=== PATIENT | male | born 1975 | race Caucasian/White ===

== ENCOUNTER → 2017-06-30 | Outpatient (CLI) | payer BC, OTHER | LOC: M WUC 18:08 | DX: S60.211A Contusion of right wrist, initial encounter (principal); X58.XXXA Exposure to other specified factors, initial encounter; Y92.9 Unspecified place or not applicable | CPT/HCPCS: 73110 ==

== ENCOUNTER 2018-02-14 12:15 | Emergency (ER) | payer BC, OTHER ==
[~2018-02-14] VITALS: Ht 170.2 cm; Wt 92.2 kg
[2018-02-14] MEDS ORDERED: NAPR-50 PO (14:08)
[2018-02-14 14:16] VITALS: BP 115/73
--- NOTE | 2018-02-14 14:17 | REP ---
SCROTAL SONOGRAPHY: HISTORY: Right testalgia. FINDINGS: High-resolution bilateral scrotal sonography shows homogeneous testicular parenchyma on both sides. No intratesticular mass lesion is seen. Testicular Doppler flow is normal bilaterally. Right sided Doppler resistive index is 0.55 and left is 0.45. The right testis measures 5.9 x 2.3 x 2.8 cm. Left testicular dimensions are 5.4 x 2.1 x 3.4 cm. The epididymides are unremarkable. Very small bilateral hydroceles are noted incidentally. IMPRESSION: No significant abnormality. Normal Doppler flow. No testicular mass lesion seen on either side. Electronically Signed by Saúl Goodwin MD 02/14/2018 05:46 P
== END 2018-02-14 14:48 | disposition home or self-care (01) ==
LOC: M ED 12:15
DX: N50.811 Right testicular pain (principal); Z88.0 Allergy status to penicillin; F17.210 Nicotine dependence, cigarettes, uncomplicated

== ENCOUNTER → 2018-02-14 | Outpatient (REF) | payer OTHER ==
[~2018-02-14] MED LIST: NAPR-50 PO
== END ==
LOC: M SFHCPLAZ 12:49
PROVIDERS: ATTEND Physician Assistant
DX: N50.811 Right testicular pain (principal)

== ENCOUNTER → 2018-03-22 | Outpatient (CLI) | payer BC, OTHER ==
--- NOTE | 2018-03-22 15:25 | REP ---
SCROTAL ULTRASOUND: Real-time sonographic evaluation of scrotum and contents performed. Testicles appear normal in size and echotexture, right testicle measuring 5.2 x 2.4 x 3.1 cm and left testicle 5.1 x 2.3 x 2.9 cm. There is no testicular mass or torsion, resistive index right testicle 0.48 and left testicle 0.51. Two small cysts are seen in the left epididymis measuring 2-3 mm in diameter. No other scrotal abnormality is seen. There is no evidence of inguinal hernia. IMPRESSION: Two tiny cysts in the head of the left epididymis. Otherwise negative scrotal ultrasound. No evidence of inguinal hernia. Electronically Signed by Emre Siegel MD 03/23/2018 03:52 P
== END ==
LOC: M RAD 14:01
PROVIDERS: ATTEND Specialist
DX: N50.3 Cyst of epididymis (principal)

== ENCOUNTER 2018-12-21 03:48 | Emergency (ER) | payer BC, OTHER ==
[~2018-12-21] VITALS: Ht 172.7 cm; Wt 90.9 kg
[2018-12-21 03:48] VITALS: BP 144/81
[~2018-12-21 03:48] MED LIST changes: -NAPR-50 PO; +NAPR-837 PO
[2018-12-21] MEDS ORDERED: LIDOCAINE W/EPINEPHRINE 1% 20ML VIAL As Ordered ONE (04:55)
[2018-12-21] MEDS ORDERED: LIDOCAINE W/EPINEPHRINE 1% 20ML VIAL SC ONE (05:00)
== END 2018-12-21 05:54 | disposition home or self-care (01) ==
LOC: M ED 03:48
DX: L02.31 Cutaneous abscess of buttock (principal); F17.210 Nicotine dependence, cigarettes, uncomplicated; Z88.0 Allergy status to penicillin

== ENCOUNTER 2018-12-23 07:49 | Emergency (ER) | payer BC, OTHER ==
[~2018-12-23] VITALS: Ht 172.7 cm; Wt 90.9 kg
[2018-12-23] MEDS ORDERED: SULF1TAB93 (07:55)
[2018-12-23 08:58] VITALS: BP 121/78
[2018-12-23] MEDS ORDERED: LEVA1TAB2 PO (14:11)
== END 2018-12-23 09:01 | disposition home or self-care (01) ==
LOC: M ED 07:49
DX: L02.31 Cutaneous abscess of buttock (principal); F17.210 Nicotine dependence, cigarettes, uncomplicated; Z88.0 Allergy status to penicillin

== ENCOUNTER 2019-04-18 10:28 | Emergency (ER) | payer BC, OTHER ==
[~2019-04-18] VITALS: Ht 172.7 cm; Wt 97.3 kg
[~2019-04-18 10:28] MED LIST changes: +LEVA1TAB2 PO; +SULF1TAB93
[2019-04-18] MEDS ORDERED: NS 1,000 ML IV ONE (10:45)
[2019-04-18 10:56] LABS: BASO # 0.1 10^3/uL (0.0-0.2); BASO % 0.8 % (0.0-1.0); EOS # 0.1 10^3/uL (0.0-0.5); HEMATOCRIT 49.7 % (42.0-52.0); HEMOGLOBIN 16.1 g/dl (13.5-17.5); LYMPH % 29.8 % (24.0-44.0); MEAN CORPUSCULAR HEMOGLOBIN 27.9 pg (27.0-33.0); MEAN CORPUSCULAR HGB CONC 32.4 g/dl (32.0-36.5); MEAN CORPUSCULAR VOLUME 86.1 fl (80.0-96.0); MONO % 10.2 % (0.0-5.0); NEUTROPHILS # 5.9 10^3/uL (1.5-8.5); NEUTROPHILS % 57.5 % (36.0-66.0); PLATELET COUNT, AUTOMATED 399 10^3/uL (150-450); RED BLOOD COUNT 5.77 10^6/uL (4.30-6.10); WHITE BLOOD COUNT 10.2 10^3/uL (4.0-10.0)
[2019-04-18] MEDS ORDERED: LIDOCAINE W/EPINEPHRINE 1% 20ML VIAL SC ONE (11:00)
--- NOTE | 2019-04-18 11:21 | REP ---
There is questionably a small left frontal scalp contusion. This should be confirmed clinically. There is no subdural or epidural hematoma. There is no intraparenchymal or subarachnoid hemorrhage. There is no edema, mass effect or midline shift. The ventricles are normal size. The visualized paranasal sinuses and mastoid air cells are clear. Impression: Essentially negative CT study of the brain. Questionable small left frontal scalp contusion. This should be confirmed clinically. Electronically Signed by Emre Ayala MD 04/18/2019 11:12 A
[2019-04-18 11:30] LABS: INR 0.98; PROTHROMBIN TIME 12.7 SECONDS (11.8-14.0)
--- NOTE | 2019-04-18 11:33 | REP ---
Portable chest, 11:08 a.m., single AP view the patient upright: Comparison is the PA and lateral chest dated 02/14/2012. There is no pneumothorax, hemothorax or pulmonary contusion. No rib fractures are identified. The lung stahl are clear. The cardiac size is normal. The jane, mediastinum, skeletal structures are unremarkable. There is a tiny round metallic artifact superimposed over the left costophrenic angle. This is also present on the prior on the prior study where was superimposed over the left lateral chest wall soft tissues. This is likely a foreign body, possibly a BB. Impression: Essentially negative portable chest. There is a small round metallic artifact on the left as described, unchanged. Electronically Signed by Emre Ayala MD 04/18/2019 11:25 A
--- NOTE | 2019-04-18 11:49 | REP ---
CT study of the cervical spine without contrast: History: Trauma Technique: Helical scanning is acquired and overlapping 2 mm high resolution axial images were generated and reviewed at bone and soft tissue window settings. Coronal and sagittal multiplanar re-formations images are generated. CT findings: There is no evidence of cervical spine element fracture. No skull base fracture is seen. Cervical vertebral body heights are preserved. Alignment is normal. Facet joints are normally aligned bilaterally at each cervical level on multiplanar re-formations images. There is no evidence of intraspinal or paraspinal hematoma. No extra vertebral abnormality is seen. There are degenerative disc changes at C3-4, C4-5, C5-6 and C6-7. There is a broad-based partially calcified right posterior disc protrusion at C3-4 which produces central canal stenosis and right-sided foraminal narrowing. Disc bulging is seen at C5-6. There is mild facet joint osteoarthropathy. Impression: Degenerative spondylosis changes with multilevel degenerative disc disease. There is a partially calcified moderate size right posterior broad-based disc protrusion at C3-4 producing central canal stenosis and right-sided neural foraminal narrowing. Otherwise negative CT study of the cervical spine without contrast. No fracture seen. Electronically Signed by Saúl Goodwin MD 04/18/2019 12:39 P
[2019-04-18 11:58] LABS: ALBUMIN 3.7 GM/DL (3.2-5.2); ALT/SGPT 21 U/L (12-78); AMYLASE 43 U/L (25-115); BILIRUBIN,DIRECT < 0.1 MG/DL (0.0-0.2); BILIRUBIN,TOTAL 0.2 MG/DL (0.2-1.0); BLOOD UREA NITROGEN 11 MG/DL (7-18); CALCIUM LEVEL 9.2 MG/DL (8.5-10.1); CARBON DIOXIDE LEVEL 28 MEQ/L (21-32); CHLORIDE LEVEL 106 MEQ/L (98-107); CK-MB VALUE MASS 1.8 NG/ML (<3.6); CPK CREATINE PHOSPHOKINASE 127 U/L (39-308); CREATININE FOR GFR 0.91 MG/DL (0.70-1.30); GLOMERULAR FILTRATION RATE > 60.0 (>60); GLUCOSE, FASTING 109 MG/DL (70-100); LIPASE 128 U/L (73-393); MB/CK RELATIVE INDEX 1.42 (< OR =4); POTASSIUM SERUM 5.2 MEQ/L (3.5-5.1); SODIUM LEVEL 139 MEQ/L (136-145); TOTAL PROTEIN 7.5 GM/DL (6.4-8.2); TROPONIN I < 0.02 NG/ML (< 0.10)
[2019-04-18] MEDS ORDERED: KETOROLAC 30 MG/ML VIAL (J1885) IV ONE (12:30)
[2019-04-18] MEDS ORDERED: IBUP-1022 PO (13:04)
[2019-04-18 13:10] VITALS: BP 142/86
[2019-04-18] MEDS ORDERED: ADACEL/BOOSTRIX VACCINE (DIPHTH/PERTUSS/ACELL/TETANUS)0.5ML SYR (90715) IM ONE (13:15)
== END 2019-04-18 13:10 | disposition home or self-care (01) ==
LOC: M ED 10:28
DX: S06.0X9A Concussion with loss of consciousness of unspecified duration, initial encounter (principal); S01.81XA Laceration without foreign body of other part of head, initial encounter; Y92.89 Other specified places as the place of occurrence of the external cause; Y93.89 Activity, other specified; Y99.0 Civilian activity done for income or pay; F17.200 Nicotine dependence, unspecified, uncomplicated; M47.819 Spondylosis without myelopathy or radiculopathy, site unspecified; M99.51 Intervertebral disc stenosis of neural canal of cervical region; Z79.899 Other long term (current) drug therapy; Z88.0 Allergy status to penicillin
CPT/HCPCS: 12011; 70450; 71045; 72125; 80048; 80076; 82150; 82550; 82553; 83605; 83690; 84484; 85025; 85610; 85730; 90471; 90715; 93041; 94760; 96360; 96374; 99284; J1885

== ENCOUNTER → 2019-08-28 | Outpatient (CLI) | payer BC, OTHER ==
[~2019-08-28] MED LIST changes: +IBUP-1022 PO; +KEFL500C17 PO; +MONT10TA4 PO; +OMEP40CA97 PO; +PRED20TA PO; +SUCR1TA PO
--- NOTE | 2019-08-28 10:03 | REP ---
Clinical: Cough. Technique: PA and lateral. Comparison: 04/18/2019. Findings: Mediastinum and cardiac silhouette are normal. Lung stahl are clear. Metallic BB marker in the left lateral chest wall again noted. No effusion. No pneumothorax. Skeletal structures are intact. Impression: No acute cardiopulmonary process. Electronically Signed by Pacheco Vyas MD 08/28/2019 09:55 A
== END ==
LOC: M WUC 09:13
PROVIDERS: ATTEND Physician Assistant
DX: R05 Cough (principal)

== ENCOUNTER 2019-09-03 07:00 | Emergency (ER) | payer BC, OTHER ==
[~2019-09-03 07:00] MED LIST changes: -KEFL500C17 PO; -MONT10TA4 PO; -OMEP40CA97 PO; +PANTOPRAZOLE 40MG VIAL (C9113 PER 1) ONE; -PRED20TA PO; -SUCR1TA PO
[2019-09-03] MEDS ORDERED: GI COCKTAIL 50ML BTL(HYOSCYAMINE/MAALOX/LIDOCAINE VISCOUS)(1:3:1) ONE (09:34)
[2019-09-03] MEDS ORDERED: ALBUTEROL SULFATE 2.5 MG/0.5 ML INH NEB SOLN ONE (10:21)
[2019-09-03] MEDS ORDERED: methylPREDNISolone 125MG 2ML VIAL ONE (10:21)
[2019-09-30] MEDS ORDERED: SUCR1TA PO (11:37)
[2019-09-30] MEDS ORDERED: OMEP40CA97 PO (11:37)
[2019-09-30] MEDS ORDERED: PRED20TA PO (11:37)
[2019-10-08 15:04] LABS: ALBUMIN 3.4 GM/DL (3.2-5.2); ALT/SGPT 41 U/L (12-78); BILIRUBIN,DIRECT < 0.1 MG/DL (0.0-0.2); BILIRUBIN,TOTAL 0.3 MG/DL (0.2-1.0); BLOOD UREA NITROGEN 22 MG/DL (7-18); CALCIUM LEVEL 8.9 MG/DL (8.5-10.1); CARBON DIOXIDE LEVEL 29 MEQ/L (21-32); CHLORIDE LEVEL 105 MEQ/L (98-107); CK-MB VALUE MASS 6.2 NG/ML (<3.6); CPK CREATINE PHOSPHOKINASE 334 U/L (39-308); CREATININE FOR GFR 0.98 MG/DL (0.70-1.30); GLOMERULAR FILTRATION RATE > 60.0 (>60); GLUCOSE, FASTING 85 MG/DL (70-100); LIPASE 151 U/L (73-393); MB/CK RELATIVE INDEX 1.86 (< OR =4); SODIUM LEVEL 142 MEQ/L (136-145); TROPONIN I < 0.02 NG/ML (< 0.10)
[2019-10-12 11:35] LABS: BASO # 0.1 10^3/uL (0.0-0.2); BASO % 0.5 % (0.0-1.0); EOS # 0.3 10^3/uL (0.0-0.5); EOS % 1.2 % (0.0-3.0); HEMATOCRIT 46.7 % (42.0-52.0); HEMOGLOBIN 15.3 g/dl (13.5-17.5); LYMPH # 3.2 10^3/uL (1.5-5.0); LYMPH % 14.3 % (24.0-44.0); MEAN CORPUSCULAR HEMOGLOBIN 28.3 pg (27.0-33.0); MEAN CORPUSCULAR HGB CONC 32.8 g/dl (32.0-36.5); MEAN CORPUSCULAR VOLUME 86.3 fl (80.0-96.0); MONO # 1.8 10^3/uL (0.0-0.8); MONO % 8.2 % (0.0-5.0); NEUTROPHILS # 16.3 10^3/uL (1.5-8.5); NEUTROPHILS % 72.4 % (36.0-66.0); PLATELET COUNT, AUTOMATED 396 10^3/uL (150-450); RED BLOOD COUNT 5.41 10^6/uL (4.30-6.10); WHITE BLOOD COUNT 22.5 10^3/uL (4.0-10.0)
--- NOTE | 2019-10-18 11:49 | ER ---
DATE: 09/03/2019 REASON FOR CONSULTATION: Epigastric pain. HISTORY OF PRESENT ILLNESS: The patient is a pleasant, 44-year-old man who presented to the emergency department at approximately 6:30 in the morning on 09/03/2019 complaining of worsened epigastric pain. He reports that he has had a long history of intermittent high epigastric discomfort which he relates to reflux and heartburn. At times in the past, he has used sbeg-kon-cipktjk antacid medications as needed. He reports that he has had increased symptoms over the last week to ten days. He reports that on this past Monday a week ago, which would be 08/25/2019, he developed a mild cough. Over the course of the ensuing several days, he had increased coughing. He noticed with this an increase in the epigastric discomfort. He apparently has been able to eat without difficulty. He has been voiding without difficulty. He denies any nausea or vomiting and has not noticed any fever or chills. This past 08/27/2019, or maybe 08/28/2019, he was seen at an urgent care center in [facility]. He was provided with some antacid medication, which was Prilosec I believe. He was also given an inhaler to use as his cough was felt to be related somehow to bronchospasms. He did not find any significant relief with this. He continued to have a cough as well as epigastric discomfort. When the proton pump inhibitor did not lead to any significant improvement, he called the urgent care center and was provided with a four day supply of prednisone, as well as an antitussive medication. He continued to have problems with the cough. The epigastric discomfort persisted. He reports that he was awakened in the frame operator of 09/03/2019 at about 3:00 in the morning with more severe pain that did not remit as it had previously. He therefore presented to the emergency department in the frame operator for evaluation. He was seen by the physician hospital medical assistant. He underwent evaluation with laboratory studies, as well as a CT scan of the chest and then a CT scan of the abdomen and pelvis. His CT scan of the abdomen and pelvis was interpreted by the radiologist as showing a small amount of fluid density adjacent to the distal esophagus. There were no other apparent abnormalities within the abdomen. I was contacted by the physician hospital medical assistant (PA) in the emergency department and asked to evaluate the patient. MEDICATIONS: The patient is not normally on any routine scheduled medications. He uses some ibuprofen prn for aches and pains. He takes nfoo-agz-hpzaftl antacid medications in larger than recommended doses. He specifically related to one wlpb-txw-[id number] medication which may be Pepcid or Zantac that he could take, but he tends to take three pills at a time instead of one to try and get faster relief. ALLERGIES: I do not believe he related any history of significant allergies. SURGICAL HISTORY: He has had only wisdom teeth removed and has had no abdominal surgery. MEDICAL HISTORY: He does have this longstanding history of what sounds like reflux with heartburn. He has some musculoskeletal complaints which he relates to hard physical labor. 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 REVIEW OF SYSTEMS: As noted in the history of the present illness, he has been having regular bowel movements. He denies any nausea, vomiting, diarrhea, or constipation. He has been able to eat. He has been voiding well. There have been no fevers or chills. He has had a persistent cough with significant coughing episodes. He denies any history of chronic severe headaches or seizures. He has no cardiac symptoms and has no known respiratory problems. He is a smoker, but reports that since trying to light a cigarette four days ago with immediate onset of coughing he has not smoked in several days. PHYSICAL EXAMINATION: Reveals a pleasant man in only mild apparent discomfort. He is able to sit up from a supine position without apparent difficulty or significant pain. He is alert and oriented. Skin is warm and dry. Sclerae are anicteric. The mucous membranes are moist. The neck is supple. There are no cervical bruits. Heart exam shows a regular rhythm at about 70. The lungs are clear to auscultation bilaterally. The abdomen is perhaps minimally protuberant. He has active bowel sounds throughout the abdomen. There is no evident hernia. The abdomen is soft to palpation throughout. There is some mild direct tenderness in the mid-epigastrium. There is no significant right upper quadrant or left upper quadrant tenderness. No masses appreciated. He does not have any significant guarding. Extremities are without any edema and he has palpable posterior tibial pulses and radial pulses bilaterally. LABORATORY STUDIES: Included a CBC showing a white count of 22,000. His hemoglobin and hematocrit were unremarkable. He had chemistries that were without significant abnormality including his BUN and creatinine. Liver function tests were normal, as was a lipase. His CT of the chest was read by radiology as showing no acute intrathoracic pathology. He had the CT scan of the abdomen and pelvis. I reviewed the images with the radiologist on the radiology department monitor because of the ongoing computer problems at [facility]. The images showed perhaps some slight thickening in the distal esophagus. There may have been a small amount of edema. There was certainly no free fluid within the abdomen. There was no sign of free air or perforation anywhere. Gallbladder appeared normal as did the liver. There was no sign of obstruction. There was some stool in the colon but no increase in the diameter of the colon. The patient had a respiratory panel that showed no respiratory pathogens including no COVID-19. He did have a Streptococcus screen that was positive for Streptococcus. IMPRESSION: I think that the patient most likely has two issues ongoing at this point. I think his epigastric pain is likely related to gastroesophageal reflux with esophagitis. He reports that he has had this for quite some time but it is intermittent usually and, on this occasion, the discomfort did not remit. I suspect that the worsened symptoms may be partly attributable to the trial of steroids for his cough. Possibly, his coughing is also contributing to the discomfort. He has tried some Prilosec without significant improvement, but this was in concert with the prednisone. He reports that he has also been drinking his usual coffee and such. He does have a significant cough recently over the last week or so and now has a positive Streptococcus screen. I think it is quite likely that he has some ongoing Streptococcus infection. His chest CT did not show any evidence of infiltrate. His elevated white blood cell count may be a combination of infection with his recent steroids, which would make his white count elevated as well. The finding of the small amount of fluid density around the distal esophagus I think may be a sign of some esophagitis, but I do not believe after reviewing the images with the radiologist that this represents an urgent problem. RECOMMENDATIONS: I spoke with Tiara, the physician hospital medical assistant (PA) who is caring for this patient. I think it would be reasonable for him to receive antibiotic therapy for his possible Streptococcus infection. I also think some ongoing treatment with a proton pump inhibitor would be appropriate. Use of Carafate for a short course may be appropriate as well. He certainly does not need any urgent surgical intervention at this time. He also does not have a primary care provider at this point and it would be beneficial, I think, if we could connect him to a primary care physician who could monitor his problems going forward. ROSY
--- NOTE | 2019-10-25 15:45 | REP ---
CT OF THE CHEST WITH CONTRAST: HISTORY: Acute chest pain. TECHNIQUE: Axial contrast-enhanced images from the thoracic inlet to the upper abdomen with coronal and sagittal reformations using pulmonary embolus technique. 100 cc Isovue 370 intravenous contrast material administered without complication. Examination followed by CT of the abdomen and pelvis. FINDINGS: The pulmonary emboli are normal and there is no evidence for pulmonary embolus. The thoracic aorta is without aneurysm or dissection. The heart and pericardium are normal. No axillary, hilar or mediastinal adenopathy. The tracheobronchial tree is patent. The bilateral lung stahl are clear. No consolidation. No effusion. No pneumothorax. Surrounding musculoskeletal structures are intact. IMPRESSION: 1. No evidence for pulmonary embolus. 2. Normal thoracic aorta. 3. No acute mediastinal or pleuroparenchymal process. MTDD
--- NOTE | 2019-10-25 15:46 | ECGEPIP ---
SINUS RHYTHM MODERALE INTRAVENTRICULAR CONDUCTION DELAY BORDERLINE ECG NO PRIOR DUE TO DOWNTIME SEE SCANNED DOWNTIME REPORT MTDD
--- NOTE | 2019-10-25 15:46 | REP ---
CT OF THE ABDOMEN WITH CONTRAST: HISTORY: Epigastric pain. TECHNIQUE: Axial contrast-enhanced images from the lung bases to the pubic symphysis using 100 cc Isovue 370 intravenous contrast material with coronal and sagittal reformations. FINDINGS: There appears to be a small amount of fluid and possible submucosal thickening of the distal esophagus primarily just above the level of the diaphragm and hiatus tapering to relatively normal appearance at the gastroesophageal junction. This is of uncertain clinical significance and should be correlated with the physical examination. If necessary, GI consultation should be considered. The lung bases are clear. The liver, spleen, pancreas, gallbladder, bilateral adrenal glands and kidneys are normal. The small and large bowel is without obstruction or acute inflammatory process. The pelvis demonstrates normal bladder and age appropriate prostate/seminal vesicles. No pelvic fluid or ascites. No free air. No intraperitoneal or retroperitoneal adenopathy. The abdominal aorta and vasculature appears normal. Musculoskeletal structures demonstrate age related changes without acute osseous abnormality. IMPRESSION: 1. Mild submucosal thickening and possible small amount of fluid adjacent to the distal esophagus just above the hiatus. These findings are nonspecific and should be correlated with the physical examination. If necessary, GI consultation and possibly endoscopy should be considered for further investigation. No associated adjacent pat-esophageal free air, adenopathy, discrete mass is otherwise appreciated. 2. Otherwise normal CT of the abdomen and pelvis. [facility]
--- NOTE | 2019-10-25 15:48 | REP ---
RIGHT UPPER QUADRANT ULTRASOUND: HISTORY: Epigastric and right upper quadrant pain. FINDINGS: Scanning through the right upper quadrant of the abdomen demonstrates a normal size thin-walled gallbladder without evidence of stone or polyp. There is a focus of comet tail artifact arising from the nondependent wall of the gallbladder consistent with a small focus of adenomyomatosis of the gallbladder wall. No sludge is seen. The common bile duct is normal, measuring 0.4 cm in greatest diameter. No focal liver lesion is seen. The pancreas is unremarkable. There is no evidence of ascites. No right renal abnormality is noted. The right kidney measures 12.5 x 6.7 x 5.6 cm. IMPRESSION: Small focus of adenomyomatosis of the gallbladder wall. No stone or polyp. Otherwise negative right upper quadrant sonogram. [facility]
== END 2019-09-03 16:21 | disposition home or self-care (01) ==
LOC: M ED 07:00
DX: K29.70 Gastritis, unspecified, without bleeding (principal); K21.0 Gastro-esophageal reflux disease with esophagitis; B34.9 Viral infection, unspecified; Z79.899 Other long term (current) drug therapy; Z88.0 Allergy status to penicillin; F17.210 Nicotine dependence, cigarettes, uncomplicated
CPT/HCPCS: 71046; 71275; 74177; 76705; 80048; 80076; 82550; 82553; 83690; 84484; 85025; 87486; 87581; 87633; 87798; 93005; 96374; 96375; 99284; C9113; J2930; U0002

== ENCOUNTER → 2019-09-05 | Emergency (ER) | payer BC, OTHER ==
[~2019-09-05] MED LIST changes: +FAMOTIDINE INJ 20MG/2ML VIAL (S0028 PER 1) As Ordered ONE; +KEFL500C17 PO; +MONT10TA4 PO; +OMEP40CA97 PO; -PANTOPRAZOLE 40MG VIAL (C9113 PER 1) ONE; +PRED20TA PO; +SUCR1TA PO; +dexameTHASONE 20MG/5ML VIAL (J1100 PER 1MG) As Ordered ONE
--- NOTE | 2019-10-24 12:23 | ECGEPIP ---
SINUS TACHYCARDIA ABNORMAL RHYTHM ECG NO OLD AVAILABLE SEE SCANNED DOWNTIME REPORT MTDD
== END | disposition home or self-care (01) ==
LOC: M ED 10:17
DX: R21 Rash and other nonspecific skin eruption (principal); L29.9 Pruritus, unspecified; T78.40XA Allergy, unspecified, initial encounter; X58.XXXA Exposure to other specified factors, initial encounter; Y92.89 Other specified places as the place of occurrence of the external cause; K21.9 Gastro-esophageal reflux disease without esophagitis; Z79.899 Other long term (current) drug therapy; Z88.0 Allergy status to penicillin
CPT/HCPCS: 93005; 96374; 99283; J1100

== ENCOUNTER 2019-09-07 10:22 | Emergency (ER) | payer BC, OTHER ==
[~2019-09-07 10:22] MED LIST changes: -FAMOTIDINE INJ 20MG/2ML VIAL (S0028 PER 1) As Ordered ONE; -KEFL500C17 PO; -MONT10TA4 PO; -OMEP40CA97 PO; -PRED20TA PO; -SUCR1TA PO; -dexameTHASONE 20MG/5ML VIAL (J1100 PER 1MG) As Ordered ONE
[2019-09-07] MEDS ORDERED: methylPREDNISolone 125MG 2ML VIAL ONE (12:45)
[2019-09-07] MEDS ORDERED: methylPREDNISolone 125MG 2ML VIAL As Ordered ONE (12:45)
[2019-09-07] MEDS ORDERED: FAMOTIDINE INJ 20MG/2ML VIAL (S0028 PER 1) ONE (12:45)
[2019-09-07] MEDS ORDERED: FAMOTIDINE INJ 20MG/2ML VIAL (S0028 PER 1) As Ordered ONE (12:47)
[2019-09-30] MEDS ORDERED: SUCR1TA PO (11:37)
[2019-09-30] MEDS ORDERED: PRED20TA PO (11:37)
[2019-09-30] MEDS ORDERED: OMEP40CA97 PO (11:37)
[2019-10-05 09:32] LABS: APPEARANCE, URINE CLEAR (CLEAR); BACTERIA, URINE AUTO NEGATIVE (NEGATIVE); BILIRUBIN, URINE AUTO NEGATIVE (NEGATIVE); BLOOD, URINE BLOOD NEGATIVE (NEGATIVE); COLOR, URINE YELLOW (YELLOW); GLUCOSE, URINE (UA) AUTO NEGATIVE (NEGATIVE); KETONE, URINE AUTO NEGATIVE (NEGATIVE); LEUKOCYTE ESTERASE, URINE AUTO NEGATIVE (NEGATIVE); MUCUS, URINE SMALL (NEGATIVE); NITRITE, URINE AUTO NEGATIVE (NEGATIVE); PROTEIN, URINE AUTO NEGATIVE (NEGATIVE); RBC, URINE AUTO 4 /HPF (0-3); SPECIFIC GRAVITY URINE AUTO 1.021 (1.002-1.035); SQUAMOUS EPITHELIAL CELL UR AU 0 /HPF (0-6); UROBILINOGEN, URINE AUTO 0.2 mg/dL (0.0-2.0); WBC, URINE AUTO 1 /HPF (0-3)
[2019-10-05 09:37] LABS: BASO # 0.2 10^3/uL (0.0-0.2); BASO % 0.5 % (0.0-1.0); EOS # 0.1 10^3/uL (0.0-0.5); EOS % 0.4 % (0.0-3.0); ERYTHROCYTE SEDIMENTATION RATE 3 mm/hr (0-15); HEMATOCRIT 50.5 % (42.0-52.0); HEMOGLOBIN 16.3 g/dl (13.5-17.5); LYMPH # 4.4 10^3/uL (1.5-5.0); LYMPH % 15.8 % (24.0-44.0); MEAN CORPUSCULAR HEMOGLOBIN 28.5 pg (27.0-33.0); MEAN CORPUSCULAR HGB CONC 32.3 g/dl (32.0-36.5); MEAN CORPUSCULAR VOLUME 88.3 fl (80.0-96.0); MONO # 1.7 10^3/uL (0.0-0.8); NEUTROPHILS # 20.3 10^3/uL (1.5-8.5); NEUTROPHILS % 73.6 % (36.0-66.0); PLATELET COUNT, AUTOMATED 458 10^3/uL (150-450); RED BLOOD COUNT 5.72 10^6/uL (4.30-6.10); WHITE BLOOD COUNT 27.6 10^3/uL (4.0-10.0)
[2019-10-14 10:03] LABS: ALBUMIN 3.1 GM/DL (3.2-5.2); ALT/SGPT 32 U/L (12-78); BILIRUBIN,DIRECT < 0.1 MG/DL (0.0-0.2); BILIRUBIN,TOTAL 0.4 MG/DL (0.2-1.0); BLOOD UREA NITROGEN 16 MG/DL (7-18); C REACTIVE PROTEIN QUANTITATIV 2.52 MG/DL (0.00-0.30); CARBON DIOXIDE LEVEL 32 MEQ/L (21-32); CHLORIDE LEVEL 105 MEQ/L (98-107); CREATININE FOR GFR 0.98 MG/DL (0.70-1.30); GLOMERULAR FILTRATION RATE > 60.0 (>60); GLUCOSE, FASTING 88 MG/DL (70-100); POTASSIUM SERUM 3.7 MEQ/L (3.5-5.1); SODIUM LEVEL 139 MEQ/L (136-145); TOTAL PROTEIN 7.2 GM/DL (6.4-8.2)
== END 2019-09-07 13:55 | disposition home or self-care (01) ==
LOC: M ED 10:22
DX: R21 Rash and other nonspecific skin eruption (principal); T78.40XA Allergy, unspecified, initial encounter; Y92.89 Other specified places as the place of occurrence of the external cause; D72.829 Elevated white blood cell count, unspecified; K21.9 Gastro-esophageal reflux disease without esophagitis; Z88.0 Allergy status to penicillin; Z88.1 Allergy status to other antibiotic agents; Z79.899 Other long term (current) drug therapy; Z79.2 Long term (current) use of antibiotics
CPT/HCPCS: 80048; 80076; 81001; 85025; 85652; 86140; 96361; 96374; 96375; 99284; J2930

== ENCOUNTER 2019-09-10 01:46 | Emergency (ER) | payer BC, OTHER ==
[2019-09-30] MEDS ORDERED: OMEP40CA97 PO (11:37)
[2019-09-30] MEDS ORDERED: PRED20TA PO (11:37)
[2019-09-30] MEDS ORDERED: SUCR1TA PO (11:37)
== END 2019-09-10 03:11 | disposition left against medical advice (07) ==
LOC: M ED 01:46
DX: Z53.21 Procedure and treatment not carried out due to patient leaving prior to being seen by health care provider (principal)

== ENCOUNTER 2019-09-12 09:00 | Inpatient (IN) | payer BC, OTHER ==
[~2019-09-12 09:00] MED LIST changes: +methylPREDNISolone 125MG 2ML VIAL ONE
[2019-09-12] MEDS ORDERED: dexameTHASONE 20MG/5ML VIAL (J1100 PER 1MG) As Ordered ONE (09:42)
[2019-09-12] MEDS ORDERED: OMEPRAZOLE 20 MG CAP ONE ×2 (10:00→14:00)
[2019-09-12] MEDS ORDERED: hydrOXYzine 50 MG TAB ONE ×4 (10:00→21:00)
[2019-09-12] MEDS ORDERED: dexameTHASONE 20MG/5ML VIAL (J1100 PER 1MG) ONE (10:00)
[2019-09-12] MEDS ORDERED: ISOVUE-370 76% 100ML VIAL As Ordered ONE (11:40)
[2019-09-12] MEDS ORDERED: OMEPRAZOLE 20 MG CAP As Ordered ONE ×2 (12:29→14:06)
[2019-09-12] MEDS ORDERED: hydrOXYzine 50 MG TAB As Ordered ONE ×4 (12:30→21:16)
[2019-09-12] MEDS ORDERED: PILL CUTTER 1 EACH XX ONE (12:33)
[2019-09-12] MEDS ORDERED: MONTELUKAST 10 MG TAB ONE (14:00)
[2019-09-12] MEDS ORDERED: LORATADINE 10 MG TAB ONE (14:00)
[2019-09-12] MEDS ORDERED: methylPREDNISolone 125MG 2ML VIAL ONE ×2 (14:00→21:00)
[2019-09-12] MEDS ORDERED: MONTELUKAST 10 MG TAB As Ordered ONE (14:06)
[2019-09-12] MEDS ORDERED: LORATADINE 10 MG TAB As Ordered ONE (14:07)
[2019-09-12] MEDS ORDERED: methylPREDNISolone 125MG 2ML VIAL As Ordered ONE ×2 (16:07→21:15)
[2019-09-13] MEDS ORDERED: methylPREDNISolone 125MG 2ML VIAL As Ordered ONE ×4 (05:05→21:08)
[2019-09-13] MEDS ORDERED: OMEPRAZOLE 20 MG CAP As Ordered ONE (09:35)
[2019-09-13] MEDS ORDERED: hydrOXYzine 50 MG TAB ONE (09:35)
[2019-09-13] MEDS ORDERED: LORATADINE 10 MG TAB ONE (09:35)
[2019-09-13] MEDS ORDERED: MONTELUKAST 10 MG TAB ONE (09:35)
[2019-09-13] MEDS ORDERED: methylPREDNISolone 125MG 2ML VIAL ONE ×3 (09:35→21:00)
[2019-09-13] MEDS ORDERED: OMEPRAZOLE 20 MG CAP ONE (09:35)
[2019-09-13] MEDS ORDERED: MONTELUKAST 10 MG TAB As Ordered ONE (09:36)
[2019-09-13] MEDS ORDERED: ENOXAPARIN 40MG/0.4ML SYRINGE (J1650 PER 10MG) As Ordered ONE (09:37)
[2019-09-13] MEDS ORDERED: LORATADINE 10 MG TAB As Ordered ONE (09:37)
[2019-09-13] MEDS ORDERED: hydrOXYzine 50 MG TAB As Ordered ONE ×2 (09:38→14:30)
[2019-09-14] MEDS ORDERED: methylPREDNISolone 125MG 2ML VIAL As Ordered ONE ×2 (05:32→08:35)
[2019-09-14] MEDS ORDERED: methylPREDNISolone 125MG 2ML VIAL ONE ×2 (05:32→08:35)
[2019-09-14] MEDS ORDERED: OMEPRAZOLE 20 MG CAP As Ordered ONE (08:35)
[2019-09-14] MEDS ORDERED: OMEPRAZOLE 20 MG CAP ONE (08:35)
[2019-09-14] MEDS ORDERED: MONTELUKAST 10 MG TAB ONE (08:35)
[2019-09-14] MEDS ORDERED: MONTELUKAST 10 MG TAB As Ordered ONE (08:35)
[2019-09-14] MEDS ORDERED: LORATADINE 10 MG TAB ONE (08:35)
[2019-09-14] MEDS ORDERED: LORATADINE 10 MG TAB As Ordered ONE (08:36)
[2019-09-30] MEDS ORDERED: OMEP40CA97 PO (11:37)
[2019-09-30] MEDS ORDERED: PRED20TA PO (11:37)
[2019-09-30] MEDS ORDERED: SUCR1TA PO (11:37)
--- NOTE | 2019-10-11 08:21 | CR ---
DATE: 09/13/2019 REASON FOR CONSULTATION: Leukocytosis. HISTORY OF PRESENT ILLNESS: I had the pleasure of seeing Mr. Emile Whitney in consultation for leukocytosis. 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 He is and has three grownup children. He had been in his usual state of health until 08/28/2019, when he developed sore throat, and it was severe enough that he ended up in the emergency room. He was given omeprazole and sucralfate. He had several hospital emergency room (ER) visits around 08/28/2019 until 09/10/2019. Most of the time he had been having epigastric pain and rash all over the body. He has been treated with prednisone and sucralfate sodium. He has been having severe itching, and temporarily due to prednisone his rash was subsiding. On 09/12/2019, eventually he was admitted to ER for further investigations. His blood count was found to be 32,000, and it has been checked several times, and it always has been higher than 30,000. Today, his blood count was 35.41, although hemoglobin and platelet count have been normal. He is being treated with steroids and local creams, and his rash has subsided. Currently his only complaint is some epigastric discomfort. Otherwise he has no joint pains. His breathing is good. He has no cough. Normal breathing. He does not have chest pain, palpitations, paroxysmal nocturnal dyspnea (PND), or orthopnea. He does not have headache, dizziness, or blackouts. He has no urinary symptoms. He claims that he had used high quantity of peanuts just before he developed sore throat and rash, when he ended up in emergency room. He also complains of swelling of the left side of the face and tongue when he ended up in emergency room, although he did not have any difficulty in breathing, and that happened in mid night of 09/05/2019. Patient has been on various antibiotics, and he was found to be allergic to one antibiotic, likely azithromycin, which was stopped after two doses. MEDICAL HISTORY: Has been non-significant. He never had this rash in the past. He has no history of surgery or allergic rash in the past. He has no history of anaphylactic or anaphylactoid reaction in the past. FAMILY HISTORY: He has one older sister who is 52 who is okay. Mother is 73 in good health. Father has lupus and had severe effect on the joints and had rash all over the body. SOCIAL HISTORY: Patient works as a products mechanical design engineer. Denies alcohol abuse. Smokes half a pack per day for the last 20 years. He has three children, 28 and 25-year-old sons and 22-year-old daughter. He has one grandchild who is autistic and is 6 years old. LABORATORY DATA: On 09/13/2019, white blood cell count 35.41, hemoglobin 13.5, hematocrit 41.4, platelet count 451, neutrophil 87, lymphocytes 1.27, absolute neutrophil count 30.79, eosinophil 0, ESR 17; normal should be between 0 and 15. Chemistry is normal. ASSESSMENT AND PLAN: Mr. Emile Whitney is a 44-year-old white gentleman who has been having sore throat, rash, epigastric pain, and swelling of the left side of his tongue and lip. Differential diagnosis for leukocytosis is considered as reactive or due to steroid use or due to lymphoproliferative disorder. Patient's blood has been sent out for mastocytosis and total tryptase, factor XII. C1 esterase inhibitor function and nonfunctional has been ordered already. Patient's C-reactive protein (CRP) has been ordered. I will add FISH testing for BCR-ABL translocation to rule out chronic myeloid leukemia. Patient will also have antinuclear antibody (VLAD) checked to rule out any autoimmune disorder. I talked to the patient in detail. Currently patient is doing well and most likely will be going home. Once he is discharged, he will be followed up as outpatient for his leukocytosis. ROSY
[2019-10-30 22:10] LABS: BASO # 0.2 10^3/uL (0.0-0.2); BASO % 0.5 % (0.0-1.0); HEMATOCRIT 41.4 % (42.0-52.0); HEMOGLOBIN 13.5 g/dl (13.5-17.5); LYMPH # 1.3 10^3/uL (1.5-5.0); LYMPH % 3.6 % (24.0-44.0); MEAN CORPUSCULAR HEMOGLOBIN 28.5 pg (27.0-33.0); MEAN CORPUSCULAR HGB CONC 32.6 g/dl (32.0-36.5); MEAN CORPUSCULAR VOLUME 87.5 fl (80.0-96.0); MONO # 1.5 10^3/uL (0.0-0.8); MONO % 4.3 % (0.0-5.0); NEUTROPHILS # 30.8 10^3/uL (1.5-8.5); PLATELET COUNT, AUTOMATED 451 10^3/uL (150-450); RED BLOOD COUNT 4.73 10^6/uL (4.30-6.10)
[2019-10-30 22:11] LABS: ERYTHROCYTE SEDIMENTATION RATE 17 mm/hr (0-15); WHITE BLOOD COUNT 35.4 10^3/uL (4.0-10.0)
[2019-10-31 16:22] LABS: HEMATOCRIT 48.4 % (42.0-52.0); HEMOGLOBIN 15.7 g/dl (13.5-17.5); MEAN CORPUSCULAR HEMOGLOBIN 28.6 pg (27.0-33.0); MEAN CORPUSCULAR HGB CONC 32.4 g/dl (32.0-36.5); MEAN CORPUSCULAR VOLUME 88.2 fl (80.0-96.0); PLATELET COUNT, AUTOMATED 517 10^3/uL (150-450); RED BLOOD COUNT 5.49 10^6/uL (4.30-6.10)
[2019-10-31 16:23] LABS: WHITE BLOOD COUNT 36.7 10^3/uL (4.0-10.0)
[2019-10-31 16:27] LABS: ATYPICAL LYMPH 3 % (0-5); EOSINOPHILS 1 % (0-3); ERYTHROCYTE SEDIMENTATION RATE 7 mm/hr (0-15); LYMPHOCYTES 15 % (16-44); MONOCYTES 1 % (0-5); NEUTROPHILS 80 % (28-66); PLATELET ESTIMATE INCREASED (NORMAL)
[2019-11-01 14:53] LABS: BASO # 0.1 10^3/uL (0.0-0.2); BASO % 0.3 % (0.0-1.0); HEMATOCRIT 43.6 % (42.0-52.0); LYMPH # 1.9 10^3/uL (1.5-5.0); LYMPH % 4.7 % (24.0-44.0); MEAN CORPUSCULAR HEMOGLOBIN 28.5 pg (27.0-33.0); MEAN CORPUSCULAR HGB CONC 32.1 g/dl (32.0-36.5); MEAN CORPUSCULAR VOLUME 88.8 fl (80.0-96.0); MONO # 2.1 10^3/uL (0.0-0.8); MONO % 5.4 % (0.0-5.0); NEUTROPHILS % 86.1 % (36.0-66.0); PLATELET COUNT, AUTOMATED 466 10^3/uL (150-450); RED BLOOD COUNT 4.91 10^6/uL (4.30-6.10); WHITE BLOOD COUNT 39.4 10^3/uL (4.0-10.0)
[2019-11-07 07:32] LABS: C1 ESTER INHIB. NON FUNCTIONAL SEE SEPARATE REPORT; TRYPTASE SEE SEPARATE REPORT mcg/L
[2019-12-02 09:46] LABS: ALBUMIN 2.9 GM/DL (3.2-5.2); ALT/SGPT 23 U/L (12-78); BILIRUBIN,TOTAL 0.2 MG/DL (0.2-1.0); BLOOD UREA NITROGEN 17 MG/DL (7-18); C REACTIVE PROTEIN QUANTITATIV 2.99 MG/DL (0.00-0.30); CARBON DIOXIDE LEVEL 28 MEQ/L (21-32); CHLORIDE LEVEL 105 MEQ/L (98-107); CREATININE FOR GFR 0.88 MG/DL (0.70-1.30); GLOMERULAR FILTRATION RATE > 60.0 (>60); GLUCOSE, FASTING 129 MG/DL (70-100); POTASSIUM SERUM 4.5 MEQ/L (3.5-5.1); SODIUM LEVEL 139 MEQ/L (136-145); TOTAL PROTEIN 6.5 GM/DL (6.4-8.2)
[2019-12-02 14:25] LABS: ANTINUCLEAR ANTIBODIES DIRECT See Separate Report
[2019-12-02 16:41] LABS: ALT/SGPT 29 U/L (12-78); BILIRUBIN,TOTAL 0.2 MG/DL (0.2-1.0); BLOOD UREA NITROGEN 23 MG/DL (7-18); C REACTIVE PROTEIN QUANTITATIV 0.72 MG/DL (0.00-0.30); CALCIUM LEVEL 9.1 MG/DL (8.5-10.1); CARBON DIOXIDE LEVEL 26 MEQ/L (21-32); CHLORIDE LEVEL 106 MEQ/L (98-107); COMPLEMENT C4 20 MG/DL (10-40); CREATININE FOR GFR 1.07 MG/DL (0.70-1.30); GLOMERULAR FILTRATION RATE > 60.0 (>60); GLUCOSE, FASTING 99 MG/DL (70-100); POTASSIUM SERUM 3.9 MEQ/L (3.5-5.1); SODIUM LEVEL 138 MEQ/L (136-145); TOTAL PROTEIN 7.1 GM/DL (6.4-8.2)
[2019-12-09 19:40] LABS: BLOOD UREA NITROGEN 21 MG/DL (7-18); CALCIUM LEVEL 8.8 MG/DL (8.5-10.1); CARBON DIOXIDE LEVEL 27 MEQ/L (21-32); CHLORIDE LEVEL 103 MEQ/L (98-107); CREATININE FOR GFR 0.86 MG/DL (0.70-1.30); GLOMERULAR FILTRATION RATE > 60.0 (>60); GLUCOSE, FASTING 117 MG/DL (70-100); POTASSIUM SERUM 4.5 MEQ/L (3.5-5.1); SODIUM LEVEL 139 MEQ/L (136-145)
== END 2019-09-14 09:00 | disposition home or self-care (01) | DRG 385 ==
LOC: M ED 09:00 → M MS5PR 10:09
PROVIDERS: ADMIT General Practice; ATTEND General Practice
DX: L50.9 Urticaria, unspecified (principal); D72.829 Elevated white blood cell count, unspecified; F17.200 Nicotine dependence, unspecified, uncomplicated

== ENCOUNTER 2019-10-22 18:24 | Emergency (ER) | payer BC, OTHER ==
[~2019-10-22] VITALS: Ht 170.2 cm; Wt 100.0 kg
[~2019-10-22 18:24] MED LIST changes: +OMEP40CA97 PO; +PRED20TA PO; +SUCR1TA PO; -methylPREDNISolone 125MG 2ML VIAL ONE
[2019-10-22] MEDS ORDERED: MONT10TA4 PO (18:32)
[2019-10-22] MEDS ORDERED: NS 1,000 ML IV SCH (20:25)
--- NOTE | 2019-10-22 20:58 | REPVR ---
PROCEDURE INFORMATION: Exam: XR Left Elbow Exam date and time: 10/22/2019 8:45 PM Age: 44 years old Clinical indication: Other: Pain; Additional info: Left elbow pain TECHNIQUE: Imaging protocol: XR Left elbow. Views: 3 or more views. COMPARISON: No relevant prior studies available. FINDINGS: Bones/joints: Normal. Soft tissues: Visible anterior fat may indicate a small joint effusion. IMPRESSION: Visible anterior fat may indicate a small joint effusion. Electronically signed by: Wicho Paul On 10/22/2019 20:58:35 PM
[2019-10-22 21:31] LABS: BASO # 0.1 10^3/uL (0.0-0.2); BASO % 0.5 % (0.0-1.0); EOS % 0.1 % (0.0-3.0); HEMATOCRIT 43.1 % (42.0-52.0); HEMOGLOBIN 14.1 g/dl (13.5-17.5); LYMPH # 1.8 10^3/uL (1.5-5.0); LYMPH % 6.5 % (24.0-44.0); MEAN CORPUSCULAR HGB CONC 32.7 g/dl (32.0-36.5); MEAN CORPUSCULAR VOLUME 88.7 fl (80.0-96.0); MONO # 2.5 10^3/uL (0.0-0.8); MONO % 9.2 % (0.0-5.0); NEUTROPHILS # 21.4 10^3/uL (1.5-8.5); NEUTROPHILS % 79.8 % (36.0-66.0); PLATELET COUNT, AUTOMATED 314 10^3/uL (150-450); RED BLOOD COUNT 4.86 10^6/uL (4.30-6.10); WHITE BLOOD COUNT 26.9 10^3/uL (4.0-10.0)
[2019-10-22 21:45] LABS: BLOOD UREA NITROGEN 23 MG/DL (7-18); CALCIUM LEVEL 8.9 MG/DL (8.5-10.1); CARBON DIOXIDE LEVEL 30 MEQ/L (21-32); CHLORIDE LEVEL 106 MEQ/L (98-107); CREATININE FOR GFR 0.91 MG/DL (0.70-1.30); GLOMERULAR FILTRATION RATE > 60.0 (>60); GLUCOSE, FASTING 63 MG/DL (70-100); POTASSIUM SERUM 4.2 MEQ/L (3.5-5.1); SODIUM LEVEL 138 MEQ/L (136-145)
--- NOTE | 2019-10-22 22:00 | REPVR ---
PROCEDURE INFORMATION: Exam: US Duplex Left Upper Extremity Veins, Limited Exam date and time: 10/22/2019 9:55 PM Age: 44 years old Clinical indication: Pain; Edema, localized; Upper extremity, left; Other: Elbow; Additional info: Lue swelling R/O dvt TECHNIQUE: Imaging protocol: Real-time Duplex ultrasound of the Left Upper Extremity with 2-D jacobo scale, color Doppler flow and spectral waveform analysis with image documentation. Limited exam focused on the left upper extremity veins. COMPARISON: No relevant prior studies available. FINDINGS: Left deep veins: Unremarkable. Axillary and brachial veins are patent throughout without thrombus. Normal Doppler waveforms. Normal compressibility and/or augmentation response. Visualized internal jugular and subclavian veins are patent. Left superficial veins: Unremarkable. Visualized cephalic and basilic veins are patent without thrombus. Soft tissues: Soft tissue edema at the level of the elbow at the clinically observed erythematous region. IMPRESSION: Soft tissue edema at the level of the elbow. No DVT. Electronically signed by: Wicho Paul On 10/22/2019 22:00:44 PM
[2019-10-22 22:03] LABS: ERYTHROCYTE SEDIMENTATION RATE 29 mm/hr (0-15)
[2019-10-22] MEDS ORDERED: ceFAZolin SOD 1 GM in D5W MINI-BAG PLUS 50 ML IV ONE (22:45)
[2019-10-22] MEDS ORDERED: KEFL500C17 PO (23:19)
[2019-10-22 23:53] VITALS: BP 146/81
--- NOTE | 2019-10-24 07:51 | ER ---
DATE OF CONSULTATION: 10/22/2019 CHIEF COMPLAINT: Left elbow pain. HISTORY OF PRESENT ILLNESS: This 44-year-old man complains of a 2-3 day history of gradual onset left elbow pain and swelling. There was no trauma but he did think he might have bumped it with something when he was working on a vehicle. 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 He is right-hand dominant. He has had bursitis in his knees. He feels like it is the same as this. He has not had any subjective fevers, chills, sweats, or feeling unless. He also has been put on prednisone 80 mg a day for the last 6 weeks due to possible allergic reaction to a medications that he was put on for gastroesophageal reflux disease (GERD). There has been no drainage or spreading redness from this or other swollen or painful joints. He still feels like he is moving it fully and well without pain with motion. MEDICAL HISTORY: GERD. MEDICATIONS: Prednisone 80 mg daily ALLERGIES: PENICILLIN. SURGICAL HISTORY: Nil. SOCIAL HISTORY: He smokes half a pack of cigarettes a day. He does not drink alcohol. He does not do intravenous drug use. 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 PHYSICAL EXAMINATION: This is a well-appearing 44-year-old. Nonlabored breathing. He looks his stated age. Temperature in the emergency department 98.8. Pulse rate was elevated at 146, down to 136, and when I saw him it was 98. Blood pressure is stable but slightly elevated at 158/94, respiratory rate 20, 97% on room air. Examination of his bilateral upper extremities reveals mild swelling, redness, and warmth on the posterior aspect of the left elbow. There is no drainage. It is a minor amount. His range of motion is full actively and passively 0-135 degrees, full pronation/supination. No pain with range of motion testing, though it does feel a little bit full in the posterior aspect of the elbow. There are no obvious breaks in the sin. No spreading ecchymosis. Hand is warm and well perfused. Strong radial pulse. Forearm compartments are soft. Normal sensation, motor function to median, radial, ulnar (MRU) and anterior interosseous nerve (AIN)/posterior interosseous nerve (PIN). No pain at the shoulder. LABORATORY EXAMINATION: Revealed white blood cell count 26.9. Percent neutrophils 79.8, lymphocyte percentage 6.5, monocyte percentage 9.2, ESR is 29. CRP 10. Radiographs were obtained of the left elbow. Joint space well maintained. No fracture. There is anterior fat pad. May indicate a small joint effusion. Vascular ultrasound was performed on the upper extremity. This shows soft tissue edema at the level of the elbow. No deep venous thrombosis (DVT). ASSESSMENT AND PLAN: A 44-year-old man appears to have left elbow posterior cellulitis or possibly an early mild infected bursitis without active drainage or spreading redness. He has no signs on clinical exam of septic joint despite the x-ray findings. 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 This appears to be an early mild case of cellulitis or possibly an infected bursitis in the posterior aspect of the elbow. I recommend one dose intravenous (IV) Ancef to Dr. King while he is here in the emergency department and starting oral antibiotics with Keflex 500 mg four times a day. and followup with myself in the office tomorrow morning at 8 a.m. and ensure that he clinically responds to follow this along every 1-2 days and repeat the blood work as well in 1-2 days to ensure good clinical and laboratory response to outpatient antibiotics. I informed that if this were to start spreading, getting worse, or become painful to range of motion of the joint or if he were to develop any other symptoms he needs to present to the emergency department immediately and may require irrigation and debridement of the elbow if this were to become worse with time despite antibiotic treatment. The patient understands the need for strict followup instructions as well as speaking to Dr. King directly. ROSY
== END 2019-10-22 23:57 | disposition home or self-care (01) ==
LOC: M ED 18:24
DX: L03.114 Cellulitis of left upper limb (principal); F17.200 Nicotine dependence, unspecified, uncomplicated; Z88.0 Allergy status to penicillin
CPT/HCPCS: 73080; 80048; 85025; 85652; 86140; 87040; 93971; 96361; 96365; 99284; J0690

== ENCOUNTER → 2019-11-20 | Outpatient (REF) | payer OTHER ==
[~2019-11-20] MED LIST changes: +KEFL500C17 PO; +MONT10TA4 PO
[2019-11-20 17:17] LABS: APPEARANCE, URINE CLEAR (CLEAR); BACTERIA, URINE AUTO NEGATIVE (NEGATIVE); BILIRUBIN, URINE AUTO NEGATIVE (NEGATIVE); BLOOD, URINE BLOOD NEGATIVE (NEGATIVE); COLOR, URINE YELLOW (YELLOW); GLUCOSE, URINE (UA) AUTO NEGATIVE (NEGATIVE); KETONE, URINE AUTO TRACE mg/dL (NEGATIVE); LEUKOCYTE ESTERASE, URINE AUTO NEGATIVE (NEGATIVE); MUCUS, URINE SMALL (NEGATIVE); NITRITE, URINE AUTO NEGATIVE (NEGATIVE); PROTEIN, URINE AUTO NEGATIVE (NEGATIVE); RBC, URINE AUTO 1 /HPF (0-3); SPECIFIC GRAVITY URINE AUTO 1.021 (1.002-1.035); SQUAMOUS EPITHELIAL CELL UR AU 0 /HPF (0-6); UROBILINOGEN, URINE AUTO 0.2 mg/dL (0.0-2.0); WBC, URINE AUTO 2 /HPF (0-3)
[2019-11-20 17:25] LABS: BASO # 0.1 10^3/uL (0.0-0.2); BASO % 0.6 % (0.0-1.0); EOS # 0.1 10^3/uL (0.0-0.5); EOS % 0.7 % (0.0-3.0); HEMATOCRIT 46.9 % (42.0-52.0); HEMOGLOBIN 15.1 g/dl (13.5-17.5); LYMPH # 4.1 10^3/uL (1.5-5.0); LYMPH % 20.5 % (24.0-44.0); MEAN CORPUSCULAR HEMOGLOBIN 29.4 pg (27.0-33.0); MEAN CORPUSCULAR HGB CONC 32.2 g/dl (32.0-36.5); MEAN CORPUSCULAR VOLUME 91.4 fl (80.0-96.0); MONO # 1.6 10^3/uL (0.0-0.8); NEUTROPHILS # 13.1 10^3/uL (1.5-8.5); PLATELET COUNT, AUTOMATED 349 10^3/uL (150-450); RED BLOOD COUNT 5.13 10^6/uL (4.30-6.10); WHITE BLOOD COUNT 19.8 10^3/uL (4.0-10.0)
[2019-11-20 17:27] LABS: ALBUMIN 3.5 GM/DL (3.2-5.2); ALT/SGPT 46 U/L (12-78); BILIRUBIN,TOTAL 0.3 MG/DL (0.2-1.0); BLOOD UREA NITROGEN 14 MG/DL (7-18); C REACTIVE PROTEIN QUANTITATIV 1.21 MG/DL (0.00-0.30); CALCIUM LEVEL 9.2 MG/DL (8.5-10.1); CARBON DIOXIDE LEVEL 30 MEQ/L (21-32); CHLORIDE LEVEL 107 MEQ/L (98-107); COMPLEMENT C3 120 MG/DL (90-180); COMPLEMENT C4 27 MG/DL (10-40); CREATININE FOR GFR 1.04 MG/DL (0.70-1.30); GLOMERULAR FILTRATION RATE > 60.0 (>60); GLUCOSE, FASTING 79 MG/DL (70-100); POTASSIUM SERUM 3.9 MEQ/L (3.5-5.1); RHEUMATOID FACTOR QUANT < 10.0 IU/ML (<15.0); SODIUM LEVEL 141 MEQ/L (136-145); TOTAL PROTEIN 6.8 GM/DL (6.4-8.2)
[2019-11-20 17:46] LABS: HEPATITIS B SURFACE ANTIGEN NEGATIVE (NEGATIVE)
[2019-11-20 18:50] LABS: ERYTHROCYTE SEDIMENTATION RATE 10 mm/hr (0-15)
[2019-11-25 18:12] LABS: ANA (HEP2) Positive (.); ANCA-ATYPICAL <1:20 titer (Neg:<1:20); CYCLIC CITRULLINATED PEPTIDE 6 units (0-19); CYTOPLASMIC NEUTROP AB ANCA-C <1:20 titer (Neg:<1:20); HEPATITIS B CORE ANTIBODY IGG Negative (Negative); PERINUCLEAR AB ANCA-P <1:20 titer (Neg:<1:20); SSA SJOGRENS A <0.2 AI (0.0-0.9); SSB SJOGRENS B <0.2 AI (0.0-0.9); TRYPTASE 6.1 ug/L (2.2-13.2)
== END ==
LOC: M SFHCRHEU 10:12
PROVIDERS: ATTEND Internal Medicine
DX: D72.829 Elevated white blood cell count, unspecified (principal); L30.9 Dermatitis, unspecified; M25.50 Pain in unspecified joint

== ENCOUNTER → 2019-11-25 | Outpatient (REF) | payer OTHER | LOC: M LAB REF 17:16 | PROVIDERS: ATTEND Physician Assistant | DX: R21 Rash and other nonspecific skin eruption (principal); L50.9 Urticaria, unspecified ==

== ENCOUNTER → 2019-12-24 | Outpatient (REF) | payer OTHER ==
[2019-12-24 16:35] LABS: BASO # 0.2 10^3/uL (0.0-0.2); BASO % 0.9 % (0.0-1.0); EOS # 0.1 10^3/uL (0.0-0.5); EOS % 0.8 % (0.0-3.0); HEMATOCRIT 46.1 % (42.0-52.0); HEMOGLOBIN 14.6 g/dl (13.5-17.5); LYMPH # 2.6 10^3/uL (1.5-5.0); LYMPH % 15.2 % (24.0-44.0); MEAN CORPUSCULAR HGB CONC 31.7 g/dl (32.0-36.5); MEAN CORPUSCULAR VOLUME 91.5 fl (80.0-96.0); MONO # 0.9 10^3/uL (0.0-0.8); MONO % 5.4 % (0.0-5.0); NEUTROPHILS # 12.4 10^3/uL (1.5-8.5); NEUTROPHILS % 73.3 % (36.0-66.0); PLATELET COUNT, AUTOMATED 412 10^3/uL (150-450); RED BLOOD COUNT 5.04 10^6/uL (4.30-6.10)
[2019-12-24 16:59] LABS: C REACTIVE PROTEIN QUANTITATIV 2.33 MG/DL (0.00-0.30)
[2019-12-24 19:13] LABS: ERYTHROCYTE SEDIMENTATION RATE 20 mm/hr (0-15)
[2019-12-28 00:07] LABS: C1 ESTERASE INHIB. FUNCTIONAL > 100 (.); COMPLEMENT TOTAL (CH50) > 60 U/mL (>41); TRYPTASE 8.5 ug/L (2.2-13.2)
== END ==
LOC: M SFHCRHEU 14:16
PROVIDERS: ATTEND Internal Medicine
DX: L50.8 Other urticaria (principal); D72.829 Elevated white blood cell count, unspecified

== ENCOUNTER → 2020-04-13 | Outpatient (CLI) | payer OTHER ==
[~2020-04-13] MED LIST changes: +MONT10TA10 PO; -MONT10TA4 PO
[2020-04-13 16:09] LABS: BASO # 0.1 10^3/uL (0.0-0.2); BASO % 0.3 % (0.0-1.0); EOS # 0.2 10^3/uL (0.0-0.5); EOS % 1.2 % (0.0-3.0); HEMATOCRIT 48.7 % (42.0-52.0); HEMOGLOBIN 15.8 g/dl (13.5-17.5); MEAN CORPUSCULAR HGB CONC 32.4 g/dl (32.0-36.5); MEAN CORPUSCULAR VOLUME 86.2 fl (80.0-96.0); MONO # 1.4 10^3/uL (0.0-0.8); MONO % 9.4 % (2.0-8.0); NEUTROPHILS # 9.7 10^3/uL (1.5-8.5); NEUTROPHILS % 66.9 % (36.0-66.0); PLATELET COUNT, AUTOMATED 437 10^3/uL (150-450); RED BLOOD COUNT 5.65 10^6/uL (4.30-6.10); WHITE BLOOD COUNT 14.5 10^3/uL (4.0-10.0)
[2020-04-13 16:40] LABS: ALBUMIN 3.7 GM/DL (3.2-5.2); ALT/SGPT 27 U/L (12-78); BILIRUBIN,TOTAL 0.4 MG/DL (0.2-1.0); BLOOD UREA NITROGEN 16 MG/DL (7-18); C REACTIVE PROTEIN QUANTITATIV 0.85 MG/DL (0.00-0.30); CALCIUM LEVEL 9.1 MG/DL (8.5-10.1); CARBON DIOXIDE LEVEL 29 MEQ/L (21-32); CHLORIDE LEVEL 104 MEQ/L (98-107); CREATININE FOR GFR 0.92 MG/DL (0.70-1.30); GLOMERULAR FILTRATION RATE > 60.0 (>60); GLUCOSE, FASTING 72 MG/DL (70-100); POTASSIUM SERUM 4.3 MEQ/L (3.5-5.1); RHEUMATOID FACTOR QUANT < 10.0 IU/ML (<15.0); SODIUM LEVEL 138 MEQ/L (136-145); TOTAL PROTEIN 7.1 GM/DL (6.4-8.2)
[2020-04-13 16:44] LABS: ERYTHROCYTE SEDIMENTATION RATE 7 mm/hr (0-15)
== END ==
LOC: M WUC 13:33
PROVIDERS: ATTEND Internal Medicine
DX: M19.90 Unspecified osteoarthritis, unspecified site (principal)

== ENCOUNTER 2020-11-07 11:17 | Emergency (ER) | payer BC, OTHER ==
[~2020-11-07] VITALS: Ht 172.7 cm; Wt 92.3 kg
[~2020-11-07 11:17] MED LIST changes: +BACTDSTA; +OMEP40CA4 PO; -OMEP40CA97 PO; -SULF1TAB93
[2020-11-07] MEDS ORDERED: predniSONE 20 MG TAB PO ONE (12:40)
[2020-11-07] MEDS ORDERED: IPRATROPIUM 0.5MG/ALBUTEROL 2.5MG INH SOL UD 3ML (DUONEB) NEB ONE (12:40)
--- NOTE | 2020-11-07 13:15 | REP ---
INDICATION: cough, SOB, eval for pneumonia. COMPARISON: Comparison chest x-ray September 12, 2019. TECHNIQUE: Two views.. FINDINGS: The lungs are well inflated and free of infiltrate. The pleural angles are sharp. The heart size is normal. Pulmonary vasculature is not increased. No significant bony abnormality is seen. There is an opaque BB in the soft tissues just outside the chest on the left unchanged. IMPRESSION: No active cardiopulmonary disease. Metallic BB foreign body in the extra thoracic soft tissues are on the left laterally unchanged. <Electronically signed by Michael Goodwin > 11/07/20 1316
[2020-11-07] MEDS ORDERED: PRED50TA PO (13:35)
[2020-11-07 13:43] VITALS: BP 134/77
== END 2020-11-07 13:49 | disposition home or self-care (01) ==
LOC: M ED 11:17
DX: J45.909 Unspecified asthma, uncomplicated (principal); K21.9 Gastro-esophageal reflux disease without esophagitis; M79.5 Residual foreign body in soft tissue; Z88.0 Allergy status to penicillin
CPT/HCPCS: 71046; 99283; J7512

== ENCOUNTER 2020-11-16 03:43 | Emergency (ER) | payer BC, OTHER ==
[~2020-11-16] VITALS: Ht 172.7 cm; Wt 90.9 kg
[~2020-11-16 03:43] MED LIST changes: +PRED50TA PO
[2020-11-16] MEDS ORDERED: ALBU8.5H INH (03:48)
[2020-11-16] MEDS ORDERED: ALBU83IN NEB (03:48)
[2020-11-16] MEDS: COMBIVENT RESPIMAT 100-20MCG INHALER 4GM INH SCH ×3 (05:04→08:27)
[2020-11-16 05:09] LABS: ABG BASE EXCESS -2.7 (-2.0-2.0); ABG HCO3 22.5 MEQ/L (22.0-26.0); ABG O2 SATURATION 94.5 % (95.0-99.0); ABG PARTIAL PRESSURE CO2 40.2 mmHg (35.0-45.0); ABG STANDARD HCO3 22.2 MEQ/L (22.0-26.0); ABG TOTAL CO2 23.7 MEQ/L (22.0-29.0); ABG pH (ARTERIAL) 7.365 UNITS (7.350-7.450)
[2020-11-16 05:16] LABS: BASO # 0.1 10^3/uL (0.0-0.2); BASO % 0.5 % (0.0-1.0); EOS # 1.6 10^3/uL (0.0-0.5); EOS % 8.6 % (0.0-3.0); HEMATOCRIT 44.1 % (42.0-52.0); HEMOGLOBIN 14.4 g/dl (13.5-17.5); LYMPH # 2.9 10^3/uL (1.5-5.0); LYMPH % 15.3 % (24.0-44.0); MEAN CORPUSCULAR HEMOGLOBIN 28.3 pg (27.0-33.0); MEAN CORPUSCULAR HGB CONC 32.7 g/dl (32.0-36.5); MEAN CORPUSCULAR VOLUME 86.8 fl (80.0-96.0); MONO % 8.5 % (2.0-8.0); NEUTROPHILS # 12.2 10^3/uL (1.5-8.5); NEUTROPHILS % 65.1 % (36.0-66.0); PLATELET COUNT, AUTOMATED 408 10^3/uL (150-450); RED BLOOD COUNT 5.08 10^6/uL (4.30-6.10); WHITE BLOOD COUNT 18.8 10^3/uL (4.0-10.0)
[2020-11-16 05:46] LABS: ALT/SGPT 19 U/L (12-78); BILIRUBIN,DIRECT < 0.1 MG/DL (0.0-0.2); BILIRUBIN,TOTAL 0.3 MG/DL (0.2-1.0); BLOOD UREA NITROGEN 12 MG/DL (7-18); CALCIUM LEVEL 8.5 MG/DL (8.5-10.1); CARBON DIOXIDE LEVEL 26 MEQ/L (21-32); CHLORIDE LEVEL 107 MEQ/L (98-107); CK-MB VALUE MASS 3.4 NG/ML (<3.6); CPK CREATINE PHOSPHOKINASE 185 U/L (39-308); CREATININE FOR GFR 0.92 MG/DL (0.70-1.30); GLOMERULAR FILTRATION RATE > 60.0 (>60); GLUCOSE, FASTING 115 MG/DL (70-100); MB/CK RELATIVE INDEX 1.84 (< OR =4); NT-PRO BNP 21 PG/ML (<125); POTASSIUM SERUM 4.3 MEQ/L (3.5-5.1); SODIUM LEVEL 139 MEQ/L (136-145); TOTAL PROTEIN 6.4 GM/DL (6.4-8.2); TROPONIN I < 0.02 NG/ML (< 0.10)
[2020-11-16 06:12] LABS: MONO # 1.6 10^3/uL (0.0-0.8)
[2020-11-16] MEDS ORDERED: methylPREDNISolone 125MG 2ML VIAL IV ONE (06:50)
[2020-11-16] MEDS ORDERED: ISOVUE-370 76% 100ML VIAL As Ordered ONE (07:15)
[2020-11-16] MEDS ORDERED: PANT40TA29 PO (07:43)
--- NOTE | 2020-11-16 07:43 | REP ---
INDICATION: DYSPNEA/COUGH COMPARISON: 11/07/2020 TECHNIQUE: Portable AP view of the chest FINDINGS: The mediastinum and cardiac silhouette are stable and within normal limits for portable technique. The lung stahl are clear without acute consolidation, effusion, or pneumothorax. Skeletal structures are intact. IMPRESSION: No acute cardiopulmonary process appreciated. <Electronically signed by Pacheco Vyas > 11/16/20 0740
[2020-11-16] MEDS ORDERED: HOME MED LIST COMPLETE! XX SCH (07:45)
--- NOTE | 2020-11-16 08:38 | REP ---
INDICATION: sob, pleuritic cp, Tachycardia, RO PE COMPARISON: None. TECHNIQUE: Axial contrast enhanced images from the thoracic inlet to the upper abdomen using pulmonary embolus technique with multiplanar re-formations. 75 ml Isovue 370 intravenous contrast material administered without complication. This CT examination was performed using the following dose reduction techniques: Automated exposure control, adjustment of mA and/or kv according to the patient's size, and use of iterative reconstruction technique. FINDINGS: Satisfactory enhancement of the pulmonary vasculature is achieved and no filling defects are identified to suggest pulmonary embolus. Further evaluation of the mediastinum demonstrates normal thoracic aorta, heart and pericardium. The bilateral lung stahl demonstrate very subtle scattered patchy areas of ground glass opacification suggesting early pneumonia/atelectasis. Mild reactive adenopathy is also present. Tracheobronchial tree is patent. No nodule or mass lesion is identified. Surrounding musculoskeletal structures intact IMPRESSION: No evidence for pulmonary embolus. Early airspace disease suggested. Covid-19 pulmonary disease is within differential. <Electronically signed by Pacheco Vyas > 11/16/20 7496
[2020-11-16 09:16] VITALS: BP 131/76
--- NOTE | 2020-11-16 19:15 | ECGEPIP ---
[facility] - ED Test Date: 2020-11-16 Pat Name: YUN AGUILERA Department: Room: - Gender: Male Facility Technician: ed : 1975 Requested By: SARITHA Pitt Order Number: [id number] Reading MD: Segundo Michael Measurements Intervals [place] Rate: 97 P: 51 GA: 134 QRS: 46 QRSD: 98 T: 55 QT: 350 QTc: 444 Interpretive Statements Normal sinus rhythm Nonspecific ST T wave changes No prior ECG for comparison Electronically Signed on 11-16-2020 19:15:05 EDT by Segundo Michael
== END 2020-11-16 09:32 | disposition left against medical advice (07) ==
LOC: M ED 03:43
DX: R06.02 Shortness of breath (principal); K21.9 Gastro-esophageal reflux disease without esophagitis; F17.200 Nicotine dependence, unspecified, uncomplicated; Z53.20 Procedure and treatment not carried out because of patient's decision for unspecified reasons; Z88.0 Allergy status to penicillin
CPT/HCPCS: 36415; 36600; 71045; 71275; 80048; 80076; 82550; 82553; 82803; 83605; 83880; 84484; 85025; 87798; 93005; 93041; 94640; 96374; 99285; J2930; Q9967

== ENCOUNTER 2020-11-30 22:10 | Emergency (ER) | payer BC, OTHER ==
[~2020-11-30] VITALS: Ht 172.7 cm; Wt 94.6 kg
[~2020-11-30 22:10] MED LIST changes: +ALBU8.5H INH; +ALBU83IN NEB; +PANT40TA29 PO
--- OUTSIDE RECORDS SUMMARY | 2020-11-30 22:17 | CCD ---
Author Author [facility] Organization [facility] Address Unknown Phone Unavailable Care Team Providers Care Director Of Marketing Operations Name Role Phone PortiaKarmenan Unavailable PROBLEMS Type Condition ICD9-CM Code YKX15-PD Code Onset Dates Condition S tatus W/U Status Risk SNOMED Code Notes Problem Inflammatory arthritis M19.90 Active confirmed 6360521 Problem Rheumatoid arthritis of multiple sites w ith negative rheumatoid factor M06.09 Active confirmed 934717808 Problem Paresthesia of both hands R20.2 Active confirmed 662040835 Problem Cigarette smoker F17.210 Active confirmed 65 229894 Problem Leukocytosis, unspecified type D72.829 Active confi rmed [id number] ALLERGIES Allergen (clinical drug ingredient) Drug/Non Drug Allergy do cumented on EMR Reaction Allergy Type Onset Date Status Penicillin (For Allergies Use Only) unknown Drug Allerg y Active ENCOUNTERS from 1975 to 2020-11-02 Encounter Location Date Provider Diagnosis [address] [phone] [place] [address] Oct, Mary Pearce Wheezing R06.2 IMMUNIZATIONS No Information SOCIAL HISTORY Tobacco Use: Social History Observation Description Date Details (start date - stop date) Current Smoker Sex Assigned At : Social History Observation Description Sex Assigned At Unknown Education: Question Answer Notes Level of Education: High School Audit Question Answer Notes Total Score: 0 Interpretation: Alcohol Education Language: Question Answer Notes Languages spoken: Serbian Baptism: Question Answer Notes Baptism 33 None Sexual Hx: Question Answer Notes Had sex in the last 12 months (vaginal, oral, or anal)? Yes Have you ever had an STD? No with Women only Use protection? No Drug and Alcohol Question Answer Notes Total Score: 0 Interpretation: No problems reported Alcohol Screening: Question Answer Notes Did you have a drink containing alcohol in the past year? No Points 0 Interpretation Negative Tobacco Use: Question Answer Notes Are you a: current smoker REASON FOR REFERRAL No Information VITAL SIGNS No information MEDICATIONS Medication SIG (Take, Route, Frequency, Duration) Notes Start Da te End Date Status Hydroxychloroquine Sulfate 200 MG 1 tab Oral bid Active Spacer/Aero-Holding Chambers - as directed with albute rol inhaler orally every 6 hours as needed for 99 months Jul, No t-Taking Omeprazole 20 MG 1 capsule Orally Once a day for 30 day(s) Feb, Not-Taking Naproxen 500 MG 1 tablet with food or milk as needed Orally every 12 hrs Not-Taking Triamcinolone Acetonide 0.1 % 1 application to affecte d area on hands Externally Twice a day for 14 day(s) Jul, Not-Ta chilo predniSONE 5 MG 1.5 tab x 2 weeks then 1 tab x 2 weeks then 0.5 tab x 2 weeks and stop Orally Once a day for 45 day(s) June, Active hydrOXYzine Pamoate 25 MG 1 capsule as needed Orally every 8 hrs for 30 day(s) Nov, Active Montelukast Sodium 10 MG 1 tablet Oral Once a day Not-Taking predniSONE 10 MG 1 tablet Orally once daily for 90 days Active Methotrexate Sodium 2.5 MG 6 tablets as directed Orally Once weekly for 90 days Mar, Active Folic Acid 1 MG 1 tablet Orally Once a day for 30 day(s) 0 Mar, Active Pantoprazole Sodium 40 MG 1 tablet Oral Once a day for 30 Days Active Levocetirizine Dihydrochloride 5 MG 1 tablet in the ev ening Orally Once a day for 30 day(s) Nov, Not-Taking Albuterol Sulfate HFA 108 (90 Base) MCG/ACT 2 puffs as needed Inhalation (R.06.2) every 6 hrs for 30 day(s) Jul, Active PROCEDURES No Information RESULTS No Results REASON FOR VISIT burning sensation in throat MEDICAL (GENERAL) HISTORY Type Description Date Medical History GERD Surgical History Lipoma removal lower back - Dr. Almonte 2017 Hospitalization History rash/swelling summer 2019 Goals Section No Information Health Concerns No Information MEDICAL EQUIPMENT No Information MENTAL STATUS No Information FUNCTIONAL STATUS No Information ASSESSMENTS Encounter Date Diagnosis Assessment Notes Treatment Notes Treatm ent Clinical Notes Oct, Wheezing (ICD-10 - R06.2) PLAN OF TREATMENT Medication Medication Name Sig Start Date Stop Date predniSONE 5 MG 1.5 tab x 2 weeks then 1 tab x 2 weeks then 0.5 tab x 2 weeks and stop Orally Once a day for 45 day(s) June, Pantoprazole Sodium 40 MG 1 tablet Oral Once a day for 30 Days Albuterol Sulfate HFA 108 (90 Base) MCG/ACT 2 puffs as needed Inhalation (R.06.2) every 6 hrs for 30 day(s) Jul, Insurance Providers Payer Name Payer Address Payer Phone Insured Name Patient Relati onship to Insured Coverage Start Date Coverage End Date [facility] [address] [facility] [id number] YUN WHITNEY [id number]
--- OUTSIDE RECORDS SUMMARY | 2020-11-30 22:17 | CCD ---
Author Author [facility] Organization [facility] Address Unknown Phone Unavailable Care Team Providers Care Dec[facility]ator [facility] Building Name Role Phone Dwight Colvin Unavailable PROBLEMS Type Condition ICD9-CM Code EJR26-CT Code Onset Dates Condition S tatus W/U Status Risk SNOMED Code Notes Problem Paresthesia of both hands R20.2 Active confirmed 014348768 Problem Multiple allergies Z88.9 Active confirmed 6 85258991 Problem Mild persistent asthma with acute exacerbation J45 .31 Active confirmed 467834487 Problem Cigarette smoker F17.210 Active confirmed 65 775680 Problem Leukocytosis, unspecified type D72.829 Active confi rmed 646336203 Problem Inflammatory arthritis M19.90 Active confirmed 8543784 Problem Rheumatoid arthritis of multiple sites w ith negative rheumatoid factor M06.09 Active confirmed 652027434 ALLERGIES Allergen (clinical drug ingredient) Drug/Non Drug Allergy do cumented on EMR Reaction Allergy Type Onset Date Status Penicillin (For Allergies Use Only) unknown Drug Allerg y Active ENCOUNTERS from 1975 to 2020-11-19 Encounter Location Date Provider Diagnosis [address] [phone] [place] [address] Nov, Dwight Colvin IMMUNIZATIONS No Information SOCIAL HISTORY Tobacco Use: Social History Observation Description Date Details (start date - stop date) Current Smoker Sex Assigned At : Social History Observation Description Sex Assigned At Unknown Education: Question Answer Notes Level of Education: High School Audit Question Answer Notes Total Score: 0 Interpretation: Alcohol Education Language: Question Answer Notes Languages spoken: Ecuadorean Buddhist: Question Answer Notes Buddhist 33 None Sexual Hx: Question Answer Notes [...] Notes Start Da te End Date Status Albuterol Sulfate HFA 108 (90 Base) MCG/ACT 2 puffs as needed Inhalation (R.06.2) every 6 hrs for 30 day(s) Jul, Active Albuterol Sulfate (2.5 MG/3ML) 0.083% 3 ml as needed I nhalation every 6 hrs for 30 Days Nov, Active Methotrexate Sodium 2.5 MG 6 tablets as directed Orally Once weekly for 90 days Mar, Active Naproxen 500 MG 1 tablet with food or milk as needed Orally every 12 hrs Not-Taking Triamcinolone Acetonide 0.1 % 1 application to affecte d area on hands Externally Twice a day for 14 day(s) Jul, Not-Ta chilo Omeprazole 20 MG 1 capsule Orally Once a day for 30 day(s) Feb, Not-Taking Pantoprazole Sodium 40 MG 1 tablet Oral Once a day for 30 Days Active hydrOXYzine Pamoate 25 MG 1 capsule as needed Orally every 8 hrs for 30 day(s) Nov, Active Hydroxychloroquine Sulfate 200 MG 1 tab Oral bid Active Spacer/Aero-Holding Chambers - as directed with albute rol inhaler orally every 6 hours as needed for 99 months Jul, No t-Taking Folic Acid 1 MG 1 tablet Orally Once a day for 30 day(s) 0 8 Mar, 2020 Active Levocetirizine Dihydrochloride 5 MG 1 tablet in the ev ening Orally Once a day for 30 day(s) Nov, Not-Taking predniSONE 5 MG 1.5 tab x 2 weeks then 1 tab x 2 weeks then 0.5 tab x 2 weeks and stop Orally Once a day for 45 day(s) June, Active May Have - nebulizer c mask & tubing orally qid prn for 999 days Nov, Active Montelukast Sodium 10 MG 1 tablet Oral Once a day Not-Taking predniSONE 10 MG 1 tablet Orally once daily for 90 days Active PROCEDURES No Information RESULTS No Results REASON FOR VISIT Breathing MEDICAL (GENERAL) HISTORY Type Description Date Medical History GERD Surgical History Lipoma removal lower back - Dr. Almonte 2017 Hospitalization History rash/swelling summer 2019 Goals Section No Information Health Concerns No Information MEDICAL EQUIPMENT No Information MENTAL STATUS No Information FUNCTIONAL STATUS No Information ASSESSMENTS No Information PLAN OF TREATMENT Medication Medication Name Sig Start Date Stop Date Pantoprazole Sodium 40 MG 1 tablet Oral Once a day for 30 Days May Have - nebulizer c mask & tubing orally qid prn for 999 days Nov, Albuterol Sulfate (2.5 MG/3ML) 0.083% 3 ml as needed I nhalation every 6 hrs for 30 Days Nov, predniSONE 5 MG 1.5 tab x 2 weeks then 1 tab x 2 weeks then 0.5 tab x 2 weeks and stop Orally Once a day for 45 day(s) June, Albuterol Sulfate HFA 108 (90 Base) MCG/ACT 2 puffs as needed Inhalation (R.06.2) every 6 hrs for 30 day(s) Jul, Next Appt Details Provider Name:Mary Noelle Pearce, 2020-02 03:00:00 PM, [address] [facility], , [place], [address], Insurance Providers Payer Name Payer Address Payer Phone Insured Name Patient Relati onship to Insured Coverage Start Date Coverage End Date [facility] [address] [facility] [id number] YUN WHITNEY [id number]
--- OUTSIDE RECORDS SUMMARY | 2020-11-30 22:18 | CCD ---
Author Author [facility] Organization [facility] Address Unknown Phone Unavailable Care Team Providers Care Employment And Claims Aide Name Role Phone TaneshaKarmen tariqan Unavailable PROBLEMS Type Condition ICD9-CM Code BPE21-GB Code Onset Dates Condition S tatus W/U Status Risk SNOMED Code Notes Problem Inflammatory arthritis M19.90 Active confirmed 8887551 Problem Rheumatoid arthritis of multiple sites w ith negative rheumatoid factor M06.09 Active confirmed 910628040 Problem Paresthesia of both hands R20.2 Active confirmed 945563384 Problem Cigarette smoker F17.210 Active confirmed 65 599263 Problem Leukocytosis, unspecified type D72.829 Active confi rmed [id number] ALLERGIES Allergen (clinical drug ingredient) Drug/Non Drug Allergy do cumented on EMR Reaction Allergy Type Onset Date Status Penicillin (For Allergies Use Only) unknown Drug Allerg y Active ENCOUNTERS from 1975 to 2020-09-23 Encounter Location Date Provider Diagnosis [facility] Rheumatology [address] [place] [address] [place] [address] Sep, Mary Pearce IMMUNIZATIONS No Information SOCIAL HISTORY Tobacco Use: Social History Observation Description Date Details (start date - stop date) Current Smoker Sex Assigned At : Social History Observation Description Sex Assigned At Unknown Education: Question Answer Notes Level of Education: High School Audit Question Answer Notes Total Score: 0 Interpretation: Alcohol Education Language: Question Answer Notes Languages spoken: Lithuanian Sabianism: Question Answer Notes Sabianism 33 None Sexual Hx: Question Answer Notes [...] Notes Start Da te End Date Status Methotrexate Sodium 2.5 MG 6 tablets as directed Orally Once weekly for 90 days Mar, Active Albuterol Sulfate HFA 108 (90 Base) MCG/ACT 2 puffs as needed Inhalation (R.06.2) every 6 hrs for 30 day(s) Jul, Not-Taking Omeprazole 20 MG 1 capsule Orally Once a day for 30 day(s) Feb, Not-Taking Naproxen 500 MG 1 tablet with food or milk as needed Orally every 12 hrs Not-Taking Triamcinolone Acetonide 0.1 % 1 application to affecte d area on hands Externally Twice a day for 14 day(s) Jul, Not-Ta chilo hydrOXYzine Pamoate 25 MG 1 capsule as needed Orally every 8 hrs for 30 day(s) Nov, Active Hydroxychloroquine Sulfate 200 MG 1 tab Oral bid Active Spacer/Aero-Holding Chambers - as directed with albute rol inhaler orally every 6 hours as needed for 99 months Jul, No t-Taking Folic Acid 1 MG 1 tablet Orally Once a day for 30 day(s) 0 Mar, Active Levocetirizine Dihydrochloride 5 MG 1 tablet in the ev ening Orally Once a day for 30 day(s) Nov, Not-Taking predniSONE 5 MG 1.5 tab x 2 weeks then 1 tab x 2 weeks then 0.5 tab x 2 weeks and stop Orally Once a day for 45 day(s) June, Active Pantoprazole Sodium 40 MG 1 tablet Oral Once a day for 30 Days Active Montelukast Sodium 10 MG 1 tablet Oral Once a day Not-Taking predniSONE 10 MG 1 tablet Orally once daily for 90 days Active PROCEDURES No Information RESULTS No Results REASON FOR VISIT Pantoprazole refill MEDICAL (GENERAL) HISTORY Type Description Date Medical [...] Oral Once a day for 30 Days Insurance Providers Payer Name Payer Address Payer Phone Insured Name Patient Relati onship to Insured Coverage Start Date Coverage End Date [facility] [address] [facility] [id number] YUN WHITNEY [id number]
--- OUTSIDE RECORDS SUMMARY | 2020-11-30 22:18 | CCD ---
Author Author [facility] Organization [facility] Address Unknown Phone Unavailable Care Team Providers Care Fry Cook Name Role Phone Mike Smith MD Unavailable Unavailable Mike Smith MD Unavailable Unavailable Mike Smith MD Unavailable Unavailable Mkie Smith MD Unavailable Unavailable Mike Smith MD Unavailable Unavailable Mike Smith MD Unavailable Unavailable Mike Smith MD Unavailable Unavailable Mike Smith MD Unavailable Unavailable Mike Smith MD Unavailable Unavailable Mike Smith MD Unavailable Unavailable Mike Smith MD Unavailable Unavailable Mike Smith MD Unavailable Unavailable Mike Smith MD Unavailable Unavailable Mike Smith MD Unavailable Unavailable Mike Smith MD Unavailable Unavailable iMke Smith MD Unavailable Unavailable Mike Smith MD Unavailable Unavailable Mike Smith MD Unavailable Unavailable Mike Smith MD Unavailable Unavailable Mike Smith MD Unavailable Unavailable Mike Smith MD Unavailable Unavailable Mike Smith MD Unavailable Unavailable Mike Smith MD Unavailable Unavailable Mike Smith MD Unavailable Unavailable Mike Smith MD Unavailable Unavailable Mike Smith MD Unavailable Unavailable Mike Smith MD Unavailable Unavailable Mike Smiht MD Unavailable Unavailable Mike Smith MD Unavailable Unavailable Mike Smith MD Unavailable Unavailable Re-disclosure Warning The records that you are about to access may contain information from federally-assisted alcohol or drug abuse programs. If such information is present, then the following federally mandated warning applies: This information has been disclosed to you from records protected by federal confidentiality rules (42 CFR part 2). The federal rules prohibit you from making any further disclosure of this information unless further disclosure is expressly permitted by the written consent of the person to whom it pertains or as otherwise permitted by 42 CFR part 2. A general authorization for the release of medical or other information is NOT sufficient for this purpose. The Federal rules restrict any use of the information to criminally investigate or prosecute any alcohol or drug abuse patient.The records that you are about to access may contain highly sensitive health information, the redisclosure of which is protected by Article 27-F of the [facility] Public Health law. If you continue you may have access to information: Regarding HIV / AIDS; Provided by facilities licensed or operated by the [facility] Office of Mental Health; or Provided by the [facility] Office for People With Developmental Disabilities. If such information is present, then the following [facility] mandated warning applies: This information has been disclosed to you from confidential records which are protected by state law. State law prohibits you from making any further disclosure of this information without the specific written consent of the person to whom it pertains, or as otherwise permitted by law. Any unauthorized further disclosure in violation of state law may result in a fine or usp sentence or both. A general authorization for the release of medical or other information is NOT sufficient authorization for further disc losure. Family History Family Member Name Family Member Gender Family Member Status Date o f Status Description Data Source(s) Unknown Male Problem MEDENT ([facility]) Unknown Unknown Problem MEDENT ([facility]) father,mother Encounters Encounter Providers Location Date Indications Data Source(s ) [place] [address] [facility] [place] [address] 11/16/2020 12:00:00 AM EDT eCW1 ([facility]) [place] [address] [facility] [place] [address] 11/02/2020 12:00:00 AM EDT eCW1 ([facility]) [place] [address] [facility] [place] [address] 09/22/2020 12:00:00 AM EDT eCW1 ([facility]) [place] [address] [facility] [place] [address] 06/17/2020 12:00:00 AM EDT eCW1 ([facility]) [place] [address] [facility] [address] 04/28/2020 12:00:00 AM EDT eCW1 ([facility]) [place] [address] [facility] [address] 04/15/2020 12:00:00 AM EST eCW1 ([facility]) [place] [address] [facility] [address] 01/07/2020 12:00:00 AM EST eCW1 ([facility]) [place] [address] [facility] [address] 12/24/2019 12:00:00 AM EST eCW1 ([facility]) [place] [address] [facility] [address] 12/06/2019 12:00:00 AM EDT eCW1 ([facility]) [place] [address] [facility] [place] [address] 12/03/2019 12:00:00 AM EDT eCW1 ([facility]) [place] [address] [facility] [address] 11/25/2019 12:00:00 AM EDT eCW1 ([facility]) Unknown [address] [facility] [place] [address] 11/21/2019 12:00:00 AM EDT eCW1 ([facility]) [place] [address] [facility] [place] [address] 11/20/2019 12:00:00 AM EDT eCW1 ([facility]) [place] [address] [facility] [place] [address] 11/20/2019 12:00:00 AM EDT eCW1 ([facility]) Unknown [address] [facility] [place] [address] 11/20/2019 12:00:00 AM EDT eCW1 ([facility]) Outpatient Attender: Sanju Shen/Section/Quentin/Re indl 10/25/2019 09:10:00 AM EDT MEDENT [facility] Outpatient Attender: Sanju Shen/Tiana/Quentin/Re indl 10/23/2019 08:40:00 AM EDT MEDENT ([facility], ) Immunizations Vaccine Date Status Description Data Source(s) COVID-19 VACCINE [facility] 05/14/2020 12:00:00 AM EDT completed [facility] Vaccine Series Complete: YESThis Data wa s Submitted to [facility] Via [employer]. Medications Medication Brand Name Start Date Product Form Dose Route Admi nistrative Instructions Pharmacy Instructions Status Indications Reaction Description Data Source(s) Albuterol 0.83 MG/ML Inhalant Solution Albuterol Sulfa te (2.5 MG/3ML) 0.083% Albuterol Sulfate (2.5 MG/3ML) 0.083% 11/09/2020 12:00:00 AM EDT 3.0 {ml_as_needed} active Albuterol Sulfate (2.5 MG/3ML) 0.083% eCW1 ([facility]) May Have - UNK 11/09/2020 12:00:00 AM EDT active May Have - eCW1 ([facility]) 2.5 mg /3 mL (0.083 %) 11/09/2020 12:00:00 AM EDT solu tion for nebulization 300 INHALE THE CONTENTS OF 1 VIAL VIA NEBULI ZER EVERY 6 HOURS INHALE THE CONTENTS OF 1 VIAL VIA NEBULIZER EVERY 6 HOURS SOLD: 11/09/2020 [facility] NEBULIZER AND COMPRESSOR 11/09/2020 12:00:00 AM EDT device 1 DIRECTED DIRECTED SOLD: 11/09/2020 [facility] 50 mg 11/07/2020 12:00:00 AM EDT tablet 4 TAKE ONE TABLET BY MOUTH EVERY DAY TAKE ONE TABLET BY MOUTH EVERY DAY SOLD: 11/08/2020 [facility] 90 mcg/actuation 11/02/2020 12:00:00 AM EDT HFA aerosol inha ler 8 INHALE TWO PUFFS BY MOUTH EVERY 6 HOURS NEEDED INHALE TWO PUFFS BY MOUTH EVERY 6 HOURS NEEDED SOLD: 11/03/2020 [facility] pantoprazole 40 MG Delayed Release Oral Tablet PANTOPRAZOLE SODIUM 09/23/2020 12:00:00 AM EDT tablet,delayed release (DR/EC) 30 T CINTIA ONE TABLET BY MOUTH EVERY DAY TAKE ONE TABLET BY MOUTH EVERY DAY SOLD: 09/23/2020 [facility] Prednisone 5 MG Oral Tablet predniSONE 5 MG predniSONE 5 MG 06/17/2020 12:00:00 AM EDT active predniSONE 5 MG e 1 ([facility]) 5 mg 06/17/2020 12:00:00 AM EDT tablet 60 TAKE ONE AND ONE-HALF TABLETS BY MOUTH EVERY DAY FOR 2 WEEKS THEN 1 ONCE DAILY FOR 2 WEEKS THEN 1/2 TABLET ONCE DAILY FOR 2 WEEKS THEN STOP TAKE ONE AND ONE-HALF TABLETS BY MOUTH E VERY DAY FOR 2 WEEKS THEN 1 ONCE DAILY FOR 2 WEEKS THEN 1/2 TABLET ONCE DAILY FOR 2 WEEKS THEN STOP SOLD: 06/23/2020 [facility] Prednisone 5 MG Oral Tablet predniSONE 5 MG predniSONE 5 MG 06/17/2020 12:00:00 AM EDT active predniSONE 5 MG e 1 ([facility]) Prednisone 5 MG Oral Tablet PredniSONE 5 MG PredniSONE 5 MG 06/17/2020 12:00:00 AM EDT active PredniSONE 5 MG e CW1 ([facility]) Prednisone 5 MG Oral Tablet predniSONE 5 MG predniSONE 5 MG 06/17/2020 12:00:00 AM EDT active predniSONE 5 MG e 1 ([facility]) Folic Acid 1 MG Oral Tablet Folic Acid 1 MG 2020 12:00:00 AM EST 1.0 {tablet} active Folic Acid 1 MG eCW1 ([facility]) Folic Acid 1 MG Oral Tablet Folic Acid 1 MG 2020 12:00:00 AM EST 1.0 {tablet} active Folic Acid 1 MG eCW1 ([facility]) Methotrexate 2.5 MG Oral Tablet Methotrexate Sodium 2. 5 MG Methotrexate Sodium 2.5 MG 2020 12:00:00 AM EST active Methotrexate Sodium 2.5 MG eCW1 ([facility]) Methotrexate 2.5 MG Oral Tablet Methotrexate Sodium 2. 5 MG Methotrexate Sodium 2.5 MG 2020 12:00:00 AM EST active Methotrexate Sodium 2.5 MG eCW1 ([facility]) Methotrexate 2.5 MG Oral Tablet Methotrexate Sodium 2. 5 MG Methotrexate Sodium 2.5 MG 2020 12:00:00 AM EST active Methotrexate Sodium 2.5 MG eCW1 ([facility]) Folic Acid 1 MG Oral Tablet Folic Acid 1 MG 2020 12:00:00 AM EST 1.0 {tablet} active Folic Acid 1 MG eCW1 ([facility]) Methotrexate 2.5 MG Oral Tablet Methotrexate Sodium 2. 5 MG Methotrexate Sodium 2.5 MG 2020 12:00:00 AM EST active Methotrexate Sodium 2.5 MG eCW1 ([facility]) Folic Acid 1 MG Oral Tablet Folic Acid 1 MG 2020 12:00:00 AM EST 1.0 {tablet} active Folic Acid 1 MG eCW1 ([facility]) 1 mg 2020 12:00:00 AM EST tablet 30 TAKE ONE TABLET BY MOUTH EVERY DAY TAKE ONE TABLET BY MOUTH EVERY DAY SOLD: 03/26/2020 [facility] Folic Acid 1 MG Oral Tablet Folic Acid 1 MG 2020 12:00:00 AM EST 1.0 {tablet} active Folic Acid 1 MG eCW1 ([facility]) 2.5 mg 2020 12:00:00 AM EST tablet 16 TAKE 4 TABLETS BY MOUTH ONCE A WEEK TAKE 4 TABLETS BY MOUTH ONCE A WEEK SOLD: 03/26/2020 [facility] Folic Acid 1 MG Oral Tablet Folic Acid 1 MG 2020 12:00:00 AM EST 1.0 {tablet} active Folic Acid 1 MG eCW1 ([facility]) Methotrexate 2.5 MG Oral Tablet Methotrexate Sodium 2. 5 MG Methotrexate Sodium 2.5 MG 2020 12:00:00 AM EST active Methotrexate Sodium 2.5 MG eCW1 ([facility]) Methotrexate 2.5 MG Oral Tablet Methotrexate Sodium 2. 5 MG Methotrexate Sodium 2.5 MG 2020 12:00:00 AM EST active Methotrexate Sodium 2.5 MG eCW1 ([facility]) Folic Acid 1 MG Oral Tablet Folic Acid 1 MG 2020 12:00:00 AM EST 1.0 {tablet} active Folic Acid 1 MG eCW1 ([facility]) Methotrexate 2.5 MG Oral Tablet Methotrexate Sodium 2. 5 MG Methotrexate Sodium 2.5 MG 2020 12:00:00 AM EST active Methotrexate Sodium 2.5 MG eCW1 ([facility]) 10 mg 12/25/2019 12:00:00 AM EST tablet 90 TAKE ONE TABLET BY MOUTH EVERY DAY TAKE ONE TABLET BY MOUTH EVERY DAY SOLD: 04/03/2020 [facility] Hydroxychloroquine Sulfate 200 MG Oral Tablet HYDROXYCHLOROQ UINE SULFATE 12/25/2019 12:00:00 AM EST tablet 60 TAKE ONE TABLE T BY MOUTH TWICE A DAY TAKE ONE TABLET BY MOUTH TWICE A DAY SOLD: 12/28/2019 [facility] 10 mg 12/25/2019 12:00:00 AM EST tablet 90 TAKE ONE TABLET BY MOUTH EVERY DAY TAKE ONE TABLET BY MOUTH EVERY DAY SOLD: 12/28/2019 [facility] Hydroxychloroquine Sulfate 200 MG Oral Tablet [Plaquen il] Plaquenil 200 MG Plaquenil 200 MG 12/24/2019 12:00:00 AM EST a ctive Plaquenil 200 MG eCW1 ([facility]) 25 mg 11/25/2019 12:00:00 AM EDT capsule 90 TAKE ONE CAPSULE BY MOUTH EVERY 8 HOURS NEEDED TAKE ONE CAPSULE BY MOUTH EVERY 8 HOURS NEEDED SOLD : 11/26/2019 [facility] Hydroxyzine Pamoate 25 MG Oral Capsule HydrOXYzine Marci oate 25 MG HydrOXYzine Pamoate 25 MG 11/25/2019 12:00:00 AM EDT 1.0 {capsule_as_needed} active HydrOXYzine Pamoate 25 MG eCW1 ([facility]) Hydroxyzine Pamoate 25 MG Oral Capsule HydrOXYzine Marci oate 25 MG HydrOXYzine Pamoate 25 MG 11/25/2019 12:00:00 AM EDT 1.0 {capsule_as_needed} active HydrOXYzine Pamoate 25 MG eCW1 ([facility]) Hydroxyzine Pamoate 25 MG Oral Capsule hydrOXYzine Marci oate 25 MG hydrOXYzine Pamoate 25 MG 11/25/2019 12:00:00 AM EDT 1.0 {capsule_as_needed} active hydrOXYzine Pamoate 25 MG eCW1 ([facility]) levocetirizine dihydrochloride 5 MG Oral Tablet Levocetirizine Dihydrochloride 5 MG Levocetirizine Dihydrochloride 5 MG 11/25/2019 12:00:00 AM EDT 1.0 {tablet_in_the_evening} active Levoceti rizine Dihydrochloride 5 MG eCW1 ([facility]) Hydroxyzine Pamoate 25 MG Oral Capsule hydrOXYzine Marci oate 25 MG hydrOXYzine Pamoate 25 MG 11/25/2019 12:00:00 AM EDT 1.0 {capsule_as_needed} active hydrOXYzine Pamoate 25 MG eCW1 ([facility]) Hydroxyzine Pamoate 25 MG Oral Capsule HydrOXYzine Marci oate 25 MG HydrOXYzine Pamoate 25 MG 11/25/2019 12:00:00 AM EDT 1.0 {capsule_as_needed} active HydrOXYzine Pamoate 25 MG eCW1 ([facility]) Hydroxyzine Pamoate 25 MG Oral Capsule HydrOXYzine Marci oate 25 MG HydrOXYzine Pamoate 25 MG 11/25/2019 12:00:00 AM EDT 1.0 {capsule_as_needed} active HydrOXYzine Pamoate 25 MG eCW1 ([facility]) Hydroxyzine Pamoate 25 MG Oral Capsule HydrOXYzine Marci oate 25 MG HydrOXYzine Pamoate 25 MG 11/25/2019 12:00:00 AM EDT 1.0 {capsule_as_needed} active HydrOXYzine Pamoate 25 MG eCW1 ([facility]) Hydroxyzine Pamoate 25 MG Oral Capsule HydrOXYzine Marci oate 25 MG HydrOXYzine Pamoate 25 MG 11/25/2019 12:00:00 AM EDT 1.0 {capsule_as_needed} active HydrOXYzine Pamoate 25 MG eCW1 ([facility]) 5 mg 11/25/2019 12:00:00 AM EDT tablet 30 TAKE ONE TABLET BY MOUTH EVERY EVENING TAKE ONE TABLET BY MOUTH EVERY EVENING SOLD: 11/26/2019 [facility] levocetirizine dihydrochloride 5 MG Oral Tablet Levocetirizine Dihydrochloride 5 MG Levocetirizine Dihydrochloride 5 MG 11/25/2019 12:00:00 AM EDT 1.0 {tablet_in_the_evening} active Levoceti rizine Dihydrochloride 5 MG eCW1 ([facility]) Hydroxyzine Pamoate 25 MG Oral Capsule hydrOXYzine Marci oate 25 MG hydrOXYzine Pamoate 25 MG 11/25/2019 12:00:00 AM EDT 1.0 {capsule_as_needed} active hydrOXYzine Pamoate 25 MG eCW1 ([facility]) levocetirizine dihydrochloride 5 MG Oral Tablet Levocetirizine Dihydrochloride 5 MG Levocetirizine Dihydrochloride 5 MG 11/25/2019 12:00:00 AM EDT 1.0 {tablet_in_the_evening} suspended Levoce tirizine Dihydrochloride 5 MG eCW1 ([facility]) levocetirizine dihydrochloride 5 MG Oral Tablet Levocetirizine Dihydrochloride 5 MG Levocetirizine Dihydrochloride 5 MG 11/25/2019 12:00:00 AM EDT 1.0 {tablet_in_the_evening} suspended Levoce tirizine Dihydrochloride 5 MG eCW1 ([facility]) levocetirizine dihydrochloride 5 MG Oral Tablet Levocetirizine Dihydrochloride 5 MG Levocetirizine Dihydrochloride 5 MG 11/25/2019 12:00:00 AM EDT 1.0 {tablet_in_the_evening} active Levoceti rizine Dihydrochloride 5 MG eCW1 ([facility]) Hydroxyzine Pamoate 25 MG Oral Capsule HydrOXYzine Marci oate 25 MG HydrOXYzine Pamoate 25 MG 11/25/2019 12:00:00 AM EDT 1.0 {capsule_as_needed} suspended HydrOXYzine Pamoate 25 MG eCW1 ( [facility]) levocetirizine dihydrochloride 5 MG Oral Tablet Levocetirizine Dihydrochloride 5 MG Levocetirizine Dihydrochloride 5 MG 11/25/2019 12:00:00 AM EDT 1.0 {tablet_in_the_evening} suspended Levoce tirizine Dihydrochloride 5 MG eCW1 ([facility]) Hydroxyzine Pamoate 25 MG Oral Capsule HydrOXYzine Marci oate 25 MG HydrOXYzine Pamoate 25 MG 11/25/2019 12:00:00 AM EDT 1.0 {capsule_as_needed} active HydrOXYzine Pamoate 25 MG eCW1 ([facility]) levocetirizine dihydrochloride 5 MG Oral Tablet Levocetirizine Dihydrochloride 5 MG Levocetirizine Dihydrochloride 5 MG 11/25/2019 12:00:00 AM EDT 1.0 {tablet_in_the_evening} suspended Levoce tirizine Dihydrochloride 5 MG eCW1 ([facility]) levocetirizine dihydrochloride 5 MG Oral Tablet Levocetirizine Dihydrochloride 5 MG Levocetirizine Dihydrochloride 5 MG 11/25/2019 12:00:00 AM EDT 1.0 {tablet_in_the_evening} suspended Levoce tirizine Dihydrochloride 5 MG eCW1 ([facility]) levocetirizine dihydrochloride 5 MG Oral Tablet Levocetirizine Dihydrochloride 5 MG Levocetirizine Dihydrochloride 5 MG 11/25/2019 12:00:00 AM EDT 1.0 {tablet_in_the_evening} suspended Levoce tirizine Dihydrochloride 5 MG eCW1 ([facility]) Hydroxyzine Pamoate 25 MG Oral Capsule HydrOXYzine Marci oate 25 MG HydrOXYzine Pamoate 25 MG 11/25/2019 12:00:00 AM EDT 1.0 {capsule_as_needed} active HydrOXYzine Pamoate 25 MG eCW1 ([facility]) levocetirizine dihydrochloride 5 MG Oral Tablet Levocetirizine Dihydrochloride 5 MG Levocetirizine Dihydrochloride 5 MG 11/25/2019 12:00:00 AM EDT 1.0 {tablet_in_the_evening} active Levoceti rizine Dihydrochloride 5 MG eCW1 ([facility]) levocetirizine dihydrochloride 5 MG Oral Tablet Levocetirizine Dihydrochloride 5 MG Levocetirizine Dihydrochloride 5 MG 11/25/2019 12:00:00 AM EDT 1.0 {tablet_in_the_evening} suspended Levoce tirizine Dihydrochloride 5 MG eCW1 ([facility]) levocetirizine dihydrochloride 5 MG Oral Tablet Levocetirizine Dihydrochloride 5 MG Levocetirizine Dihydrochloride 5 MG 11/25/2019 12:00:00 AM EDT 1.0 {tablet_in_the_evening} suspended Levoce tirizine Dihydrochloride 5 MG eCW1 ([facility]) pantoprazole 40 MG Delayed Release Oral Tablet PANTOPRAZOLE SODIUM 11/14/2019 12:00:00 AM EDT tablet,delayed release (DR/EC) 30 T CINTIA ONE TABLET BY MOUTH EVERY DAY TAKE ONE TABLET BY MOUTH EVERY DAY SOLD: 02/10/2020 [facility] pantoprazole 40 MG Delayed Release Oral Tablet PANTOPRAZOLE SODIUM 11/14/2019 12:00:00 AM EDT tablet,delayed release (DR/EC) 30 T CINTIA ONE TABLET BY MOUTH EVERY DAY TAKE ONE TABLET BY MOUTH EVERY DAY SOLD: 11/26/2019 [facility] 40 mg 10/23/2019 12:00:00 AM EDT tablet,delayed release (DR/EC) 30 TAKE ONE TABLET BY MOUTH EVERY DAY TAKE ONE TABLET BY MOUTH EVERY DAY SOLD: 10/23/2019 [facility] montelukast 10 MG Oral Tablet MONTELUKAST SODIUM 10/23/2019 12:0 0:00 AM EDT tablet 30 TAKE ONE TABLET BY MOUTH EVERY E VENING TAKE ONE TABLET BY MOUTH EVERY EVENING SOLD: 10/23/2019 [facility] Cephalexin 500 MG Oral Capsule [Keflex] Keflex 10/23/2019 12:00:0 0 AM EDT ORAL active MEDENT ([facility] ) Cephalexin 500 MG Oral Capsule CEPHALEXIN 10/23/2019 12:00:00 AM EDT capsule 40 TAKE ONE CAPSULE BY MOUTH FOUR TIMES A DAY TAKE ONE CA PSULE BY MOUTH FOUR TIMES A DAY SOLD: 10/23/2019 [facility] 20 mg 09/26/2019 12:00:00 AM EDT tablet 120 TAKE TWO TABLETS BY MOUTH TWICE A DAY TAKE TWO TABLETS BY MOUTH TWICE A DAY SOLD: 10/23/2019 [facility] Insurance Providers Payer name Policy type / Coverage type Policy ID Covered constitution party ID Covered constitution party's relationship to drummond Policy [place] Plan Information [facility] [id number] [id number] [facility] [employer] [id number] WI2 [id number] [facility] [id number] [id number] [facility] [employer] [id number] WI2 [id number] [facility] O [id number] S [id number] [facility] ([facility]) O [id number] S [id number] [facility] [employer] [id number] [place]2 [id number] [facility] Plan Health Maintenance Organization (HMO) [id number] Family Dependent [id number] [facility] EMPIRE PLAN [id number] [facility] Plan Health Maintenance Organization (HMO) [id number] Family Dependent 8 [id number] [employer] BLUE CROSS BLUE SHIELD -O/P HM [id number] 01 [id number] [employer] BL[employer]OSS BLUE SHIELD -O/P [id number] 01 [id number] [facility] Plan Health Maintenance Organization (HMO) [id number] Family Dependent 8 [id number] [facility] Plan Health Maintenance Organization (HMO) [id number] Family Dependent [id number] [facility] EMPIRE PLAN HM UNAVAILABLE 01 UN AVAILABLE ANSI-Commercial [id number] ANSI-Commercial [id number] ANSI-Commercial [id number] [employer] [facility] [id number] [facility] [id number] [facility] Commercial [id number] Family Dependent [id number] [facility] Commercial [id number] Family Dependent [id number] [facility] Commercial [id number] Family Dependent [id number] [facility] Commercial [id number] Family Depende nt BC/BS OF [place] P [id number] S [id number] Problems, Conditions, and Diagnoses Code Display Name Description Problem Type Effective Dates Data Source(s) J45.31 [id number] Mild persistent asthma with acute exacerb ation Problem 11/09/2020 12:00:00 AM EDT eCW1 ([facility]) Z88.9 [id number] Multiple allergies Problem 11/09/2020 12:00: 00 AM EDT eCW1 ([facility]) M06.09 [id number] Rheumatoid arthritis of multiple sites with negative rheumatoid factor Problem 04/15/2020 12:00:00 AM EST eCW1 ([facility]) M19.90 [id number] Inflammatory arthritis Problem 2020 12 :00:00 AM EST eCW1 ([facility]) D72.829 [id number] Leukocytosis, unspecified type Problem 11/20/2019 12:00:00 AM EDT eCW1 ([facility]) Surgeries/Procedures Procedure Description Date Indications Data Source(s) Suture Removal 12/03/2019 12:00:00 AM EDT eCW1 ([facility]) Results ID Date Data Source [id number] 11/16/2020 04:29:00 AM EDT [facility] Name Value Range Interpretation Code Description Data Elizabeth rce(s) Supporting Document(s) SARS-CoV-2 (COVID 19) NEGATIVE - SARS-CoV-2 (COVID19) [facility] This lab was ordered by [facility] a nd reported by [facility]. ID Date Data Source [id number] 11/07/2020 11:28:00 AM EDT [facility] Name Value Range Interpretation Code Description Data Elizabeth rce(s) Supporting Document(s) SARS COVID ANTIGEN NEGATIVE [facility] This lab was ordered by [facility] a nd reported by [facility]. ID Date Data Source C REACTIVE PROTEIN QUANTITATIV (At [facility]) 12/24/2019 12:00 :00 AM EST eCW1 ([facility]) Name Value Range Interpretation Code Description Data Elizabeth rce(s) Supporting Document(s) 2.33 0.00-0.30 C REACTIVE PROTEIN QUANTI TATIV eCW1 ([facility]) ID Date Data Source ERYTHROCYTE SEDIMENTATION RATE 12/24/2019 12:00:00 AM EST eC W1 ([facility]) Name Value Range Interpretation Code Description Data Elizabeth rce(s) Supporting Document(s) 20 0-15 ERYTHROCYTE SEDIMENTATION RATE eCW1 ([facility]) ID Date Data Source CBC with Differential 12/24/2019 12:00:00 AM EST eCW1 [facility] Name Value Range Interpretation Code Description Data Elizabeth rce(s) Supporting Document(s) 17.0 4.0-10.0 WHITE BLOOD COUNT eCW1 ([facility]) 5.04 4.30-6.10 RED BLOOD COUNT eCW1 ([facility]) 14.6 13.5-17.5 HEMOGLOBIN eCW1 ([facility]) 91.5 80.0-96.0 MEAN CORPUSCULAR VOLUME e CW1 ([facility]) 29.0 27.0-33.0 MEAN CORPUSCULAR HEMOGLOB IN eCW1 ([facility]) 46.1 42.0-52.0 HEMATOCRIT eCW1 ([facility]) 14.3 11.5-14.5 RED CELL DISTRIBUTION WID TH eCW1 ([facility]) 73.3 36.0-66.0 NEUTROPHILS % eCW1 ([facility]) 31.7 32.0-36.5 MEAN CORPUSCULAR HGB CONC eCW1 ([facility]) 412 150-450 PLATELET COUNT, AUTOMATED eCW1 ([facility]) 5.4 0.0-5.0 MONO % eCW1 ([facility]) 12.4 1.5-8.5 NEUTROPHILS # eCW1 ([facility]) 0.8 0.0-3.0 EOS % eCW1 ([facility]) 15.2 24.0-44.0 LYMPH % eCW1 ([facility]) 0.9 0.0-1.0 BASO % eCW1 ([facility]) 2.6 1.5-5.0 LYMPH # eCW1 ([facility]) 0.9 0.0-0.8 MONO # eCW1 ([facility]) 0.2 0.0-0.2 BASO # eCW1 ([facility]) 0.1 0.0-0.5 EOS # eCW1 ([facility]) ID Date Data Source COMPLEMENT C4 12/24/2019 12:00:00 AM EST eCW1 ([facility]) Name Value Range Interpretation Code Description Data Elizabeth rce(s) Supporting Document(s) 28 10-40 COMPLEMENT C4 eCW1 ([facility]) ID Date Data Source COMPLEMENT C3 12/24/2019 12:00:00 AM EST eCW1 ([facility]) Name Value Range Interpretation Code Description Data Elizabeth rce(s) Supporting Document(s) 108 90-180 COMPLEMENT C3 eCW1 ([facility]) ID Date Data Source TRYPTASE 11/26/2019 10:28:47 AM EDT eCW1 ([facility]) Name Value Range Interpretation Code Description Data Elizabeth rce(s) Supporting Document(s) 6.1 eCW1 ([facility]) ID Date Data Source ANTI-SJOGRENS A&B ANTIBODIES 11/26/2019 10:28:47 AM EDT eCW1 ([facility]) Name Value Range Interpretation Code Description Data Eliazbeth rce(s) Supporting Document(s) <0.2 eCW1 ([facility]) <0.2 eCW1 ([facility]) ID Date Data Source ANTI-NEUTROPHIL CYTOPLASMIC AB 11/26/2019 10:28:47 AM EDT eC W1 ([facility]) Name Value Range Interpretation Code Description Data Elizabeth rce(s) Supporting Document(s) <1:20 eCW1 ([facility]) <1:20 eCW1 ([facility]) <1:20 eCW1 ([facility]) ID Date Data Source VLAD TITER & PATTERN 11/26/2019 10:28:47 AM EDT eCW1 ([facility]) Name Value Range Interpretation Code Description Data Elizabeth rce(s) Supporting Document(s) Positive eCW1 ([facility]) ID Date Data Source HEPATITIS B CORE ANTIBODY IGG 11/26/2019 10:28:47 AM EDT eCW 1 ([facility]) Name Value Range Interpretation Code Description Data Leizabeth rce(s) Supporting Document(s) Negative eCW1 ([facility]) ID Date Data Source CYCLIC CITRULLINATED PEPTIDE 11/26/2019 10:28:46 AM EDT eCW1 ([facility]) Name Value Range Interpretation Code Description Data Elizabeth rce(s) Supporting Document(s) 6 eCW1 ([facility]) ID Date Data Source UA URINALYSIS 11/21/2019 09:28:00 AM EDT eCW1 ([facility]) Name Value Range Interpretation Code Description Data Elizabeth rce(s) Supporting Document(s) eCW1 ([facility]) ID Date Data Source RHEUMATOID FACTOR QUANT 11/21/2019 09:27:59 AM EDT eCW1 ([facility]) Name Value Range Interpretation Code Description Data Elizabeth rce(s) Supporting Document(s) < 10.0 eCW1 ([facility]) ID Date Data Source HEPATITIS C ANTIBODY INDEX 11/21/2019 09:27:59 AM EDT eCW1 ( [facility]) Name Value Range Interpretation Code Description Data Elizabeth rce(s) Supporting Document(s) 0.0 eCW1 ([facility]) ID Date Data Source HEPATITIS B SURFACE ANTIGEN 11/21/2019 09:27:59 AM EDT eCW1 ([facility]) Name Value Range Interpretation Code Description Data Elizabeth rce(s) Supporting Document(s) NEGATIVE eCW1 ([facility]) ID Date Data Source Comprehensive Metabolic Profile (CMP) 11/21/2019 09:27:59 AM EDT eCW1 ([facility]) Name Value Range Interpretation Code Description Data Elizabeth rce(s) Supporting Document(s) 79 eCW1 ([facility]) 1.04 eCW1 ([facility]) > 60.0 eCW1 ([facility]) 14 eCW1 ([facility]) 141 eCW1 ([facility]) 107 eCW1 ([facility]) 30 eCW1 ([facility]) 9.2 eCW1 ([facility]) 3.9 eCW1 ([facility]) 46 eCW1 ([facility]) 0.3 eCW1 ([facility]) 15 eCW1 ([facility]) 50 eCW1 ([facility]) 6.8 eCW1 ([facility]) 3.5 eCW1 ([facility]) 1.1 eCW1 ([facility]) Procedure Social History Code Duration Value Status Description Data Source(s ) Smoking 06/17/2020 12:00:00 AM EDT Current Smoker completed Curre nt Smoker eCW1 ([facility]) Smoking 06/17/2020 12:00:00 AM EDT Current Smoker completed Curre nt Smoker eCW1 ([facility]) Smoking 06/17/2020 12:00:00 AM EDT Current Smoker completed Curre nt Smoker eCW1 ([facility]) Smoking 06/17/2020 12:00:00 AM EDT Current Smoker completed Curre nt Smoker eCW1 ([facility]) Smoking 04/15/2020 12:00:00 AM EST Current Smoker completed Curre nt Smoker eCW1 ([facility]) Smoking 04/15/2020 12:00:00 AM EST Current Smoker completed Curre nt Smoker eCW1 ([facility]) Smoking 04/15/2020 12:00:00 AM EST Current Smoker completed Curre nt Smoker eCW1 ([facility]) Smoking 12/24/2019 12:00:00 AM EST Current Smoker completed Curre nt Smoker eCW1 ([facility]) Smoking 11/25/2019 12:00:00 AM EDT Current Smoker completed Curre nt Smoker eCW1 ([facility]) Smoking 11/25/2019 12:00:00 AM EDT Current Smoker completed Curre nt Smoker eCW1 ([facility]) Smoking 11/25/2019 12:00:00 AM EDT Current Smoker completed Curre nt Smoker eCW1 ([facility]) Smoking 11/25/2019 12:00:00 AM EDT Current Smoker completed Curre nt Smoker eCW1 ([facility]) Smoking 11/20/2019 12:00:00 AM EDT Current Smoker completed Curre nt Smoker eCW1 ([facility]) Smoking 11/20/2019 12:00:00 AM EDT Current Smoker completed Curre nt Smoker eCW1 ([facility]) Smoking 11/20/2019 12:00:00 AM EDT Current Smoker completed Curre nt Smoker eCW1 ([facility]) Vital Signs ID Date Data Source UNK Name Value Range Interpretation Code Description Data Source(s) Body weight 212.2 [lb_av] 212.2 [lb_av] eCW1 ([facility]) Body weight 96.2 kg 96.2 kg eCW1 ([facility]) Body height 67 [in_i] 67 [in_i] eCW1 ([facility]) Body mass index (BMI) [Ratio] 33.23 kg/m2 33.23 kg/m2 eCW1 ([facility]) Heart rate 101 /min 101 /min eCW1 ([facility]) Respiratory rate 18 /min 18 /min eCW1 ([facility]) Body temperature 97.9 [degF] 97.9 [degF] eCW1 ( [facility]) Systolic blood pressure 140 mm[Hg] 140 mm[Hg] e CW1 ([facility]) Diastolic blood pressure 72 mm[Hg] 72 mm[Hg] eCW1 ([facility]) Body weight 221.4 [lb_av] 221.4 [lb_av] eCW1 ([facility]) Body weight 100.4 kg 100.4 kg eCW1 ([facility]) Body height 67 [in_i] 67 [in_i] eCW1 ([facility]) Body mass index (BMI) [Ratio] 34.67 kg/m2 34.67 kg/m2 eCW1 ([facility]) Heart rate 126 /min 126 /min eCW1 ([facility]) Respiratory rate 18 /min 18 /min eCW1 ([facility]) Body temperature 97.8 [degF] 97.8 [degF] eCW1 ( [facility]) Systolic blood pressure 122 mm[Hg] 122 mm[Hg] e CW1 ([facility]) Diastolic blood pressure 70 mm[Hg] 70 mm[Hg] eCW1 ([facility]) Body weight 225 [lb_av] 225 [lb_av] eCW[facility] Body weight 102 kg 102 kg eCW1 ([facility]) Body height 67 [in_i] 67 [in_i] eCW1 ([facility]) Body mass index (BMI) [Ratio] 35.24 kg/m2 35.24 kg/m2 eCW1 ([facility]) Heart rate 128 /min 128 /min eCW1 ([facility]) Respiratory rate 18 /min 18 /min eCW1 ([facility]) Body temperature 98.0 [degF] 98.0 [degF] eCW1 ( [facility]) Systolic blood pressure 128 mm[Hg] 128 mm[Hg] e CW1 ([facility]) Diastolic blood pressure 72 mm[Hg] 72 mm[Hg] eCW1 ([facility]) Diastolic blood pressure 72 mm[Hg] 72 mm[Hg] eCW1 ([facility]) Body weight 220.0 [lb_av] 220.0 [lb_av] eCW1 ([facility]) Body height 67 [in_i] 67 [in_i] eCW1 ([facility]) Body mass index (BMI) [Ratio] 34.45 kg/m2 34.45 kg/m2 eCW1 ([facility]) Systolic blood pressure 130 mm[Hg] 130 mm[Hg] e CW1 ([facility]) Body temperature 96.4 [degF] 96.4 [degF] eCW1 ( [facility]) Body weight 220.2 [lb_av] 220.2 [lb_av] eCW1 ([facility]) Body weight 99.9 kg 99.9 kg eCW1 ([facility]) Body height 67 [in_i] 67 [in_i] eCW1 ([facility]) Body mass index (BMI) [Ratio] 34.48 kg/m2 34.48 kg/m2 eCW1 ([facility]) Systolic blood pressure 122 mm[Hg] 122 mm[Hg] e CW1 ([facility]) Heart rate 118 /min 118 /min eCW1 ([facility]) Respiratory rate 18 /min 18 /min eCW1 ([facility]) Diastolic blood pressure 64 mm[Hg] 64 mm[Hg] eCW1 ([facility]) Patient Treatment Plan of Care Planned Activity Planned Date Details Description Data Source (s) May Have - 11/09/2020 12:00:00 AM EDT e CW1 ([facility]) Albuterol 0.83 MG/ML Inhalant Solution 11/09/2020 12:00:00 AM EDT eCW1 ([facility]) Prednisone 5 MG Oral Tablet 06/17/2020 12:00:00 AM EDT eCW1 ([facility]) Prednisone 5 MG Oral Tablet 06/17/2020 12:00:00 AM EDT eCW1 ([facility]) Prednisone 5 MG Oral Tablet 06/17/2020 12:00:00 AM EDT eCW1 ([facility]) Prednisone 5 MG Oral Tablet 06/17/2020 12:00:00 AM EDT eCW1 ([facility]) Methotrexate 2.5 MG Oral Tablet 2020 12:00:00 AM EST eCW1 ([facility]) Methotrexate 2.5 MG Oral Tablet 2020 12:00:00 AM EST eCW1 ([facility]) Methotrexate 2.5 MG Oral Tablet 2020 12:00:00 AM EST eCW1 ([facility]) Hydroxychloroquine Sulfate 200 MG Oral Tablet [[place]] 12/24/2019 12:00:00 AM EST eCW1 ([facility]) levocetirizine dihydrochloride 5 MG Oral Tablet 11/25/2019 12:00:00 AM EDT eCW1 ([facility]) Hydroxyzine Pamoate 25 MG Oral Capsule 11/25/2019 12:00:00 AM EDT eCW1 ([facility]) levocetirizine dihydrochloride 5 MG Oral Tablet 11/25/2019 12:00:00 AM EDT eCW1 ([facility]) Hydroxyzine Pamoate 25 MG Oral Capsule 11/25/2019 12:00:00 AM EDT eCW1 ([facility]) levocetirizine dihydrochloride 5 MG Oral Tablet 11/25/2019 12:00:00 AM EDT eCW1 ([facility]) Hydroxyzine Pamoate 25 MG Oral Capsule 11/25/2019 12:00:00 AM EDT eCW1 ([facility]) levocetirizine dihydrochloride 5 MG Oral Tablet 11/25/2019 12:00:00 AM EDT eCW1 ([facility]) Hydroxyzine Pamoate 25 MG Oral Capsule 11/25/2019 12:00:00 AM EDT eCW1 ([facility])
[2020-11-30 22:44] LABS: BASO # 0.1 10^3/uL (0.0-0.2); BASO % 0.5 % (0.0-1.0); EOS # 2.6 10^3/uL (0.0-0.5); EOS % 16.7 % (0.0-3.0); HEMATOCRIT 43.1 % (42.0-52.0); HEMOGLOBIN 14.1 g/dl (13.5-17.5); LYMPH # 3.7 10^3/uL (1.5-5.0); LYMPH % 24.1 % (24.0-44.0); MEAN CORPUSCULAR HEMOGLOBIN 27.8 pg (27.0-33.0); MEAN CORPUSCULAR HGB CONC 32.7 g/dl (32.0-36.5); MONO # 1.6 10^3/uL (0.0-0.8); MONO % 10.2 % (2.0-8.0); NEUTROPHILS # 7.4 10^3/uL (1.5-8.5); NEUTROPHILS % 47.4 % (36.0-66.0); PLATELET COUNT, AUTOMATED 451 10^3/uL (150-450); RED BLOOD COUNT 5.07 10^6/uL (4.30-6.10); WHITE BLOOD COUNT 15.6 10^3/uL (4.0-10.0)
[2020-11-30] MEDS ORDERED: COMBIVENT RESPIMAT 100-20MCG INHALER 4GM INH SCH (22:50)
[2020-11-30 23:06] LABS: INR 0.98; PROTHROMBIN TIME 13.4 SECONDS (12.7-14.5)
[2020-11-30 23:07] LABS: PARTIAL THROMBOPLASTIN TIME 34.9 SECONDS (25.9-37.0)
[2020-11-30 23:24] LABS: ALBUMIN 3.1 GM/DL (3.2-5.2); ALT/SGPT 26 U/L (12-78); BILIRUBIN,DIRECT < 0.1 MG/DL (0.0-0.2); BILIRUBIN,TOTAL 0.2 MG/DL (0.2-1.0); BLOOD UREA NITROGEN 13 MG/DL (7-18); CALCIUM LEVEL 8.7 MG/DL (8.5-10.1); CARBON DIOXIDE LEVEL 25 MEQ/L (21-32); CHLORIDE LEVEL 107 MEQ/L (98-107); CK-MB VALUE MASS 5.1 NG/ML (<3.6); CPK CREATINE PHOSPHOKINASE 284 U/L (39-308); CREATININE FOR GFR 1.03 MG/DL (0.70-1.30); GLOMERULAR FILTRATION RATE > 60.0 (>60); GLUCOSE, FASTING 105 MG/DL (70-100); LIPASE 103 U/L (73-393); POTASSIUM SERUM 4.3 MEQ/L (3.5-5.1); SODIUM LEVEL 141 MEQ/L (136-145); TOTAL PROTEIN 6.7 GM/DL (6.4-8.2); TROPONIN I < 0.02 NG/ML (< 0.10)
--- OUTSIDE RECORDS SUMMARY | 2020-11-30 23:40 | CCD ---
Author Author [facility] Organization [facility] Address Unknown Phone Unavailable Care Team Providers Care Vat Skimmer Name Role Phone Mike Smith MD Unavailable [...] law may result in a fine or alf sentence or both. A general authorization for the release of medical or other information is NOT sufficient authorization for further disc losure. Family History Family Member Name Family Member Gender Family Member Status Date o f Status Description Data Source(s) Unknown Male Problem MEDENT ([facility]) Unknown Unknown Problem MEDENT ([facility]) father,mother Encounters Encounter Providers Location Date Indications Data Source(s ) Unknown [address] [facility] [place] [address] 11/16/2020 12:00:00 AM EDT eCW1 ([facility]) Unknown [address] [facility] [place] [address] 11/02/2020 12:00:00 AM EDT eCW1 ([facility]) Unknown [address] [facility] [place] [address] 09/22/2020 12:00:00 AM EDT eCW1 ([facility]) [place] [address] [facility] [place] [address] 06/17/2020 12:00:00 AM EDT eCW1 ([facility]) Unknown [address] [facility] [address] 04/28/2020 12:00:00 AM EDT eCW1 ([facility]) [place] [address] [facility] [address] 04/15/2020 12:00:00 AM EST eCW1 ([facility]) Unknown [address] [facility] [address] 01/07/2020 12:00:00 AM EST eCW1 ([facility]) [place] [address] [facility] [address] 12/24/2019 12:00:00 AM EST eCW1 ([facility]) Unknown [address] [facility] [address] 12/06/2019 12:00:00 AM EDT eCW1 ([facility]) [place] [address] [facility] [address] 12/03/2019 12:00:00 AM EDT eCW1 ([facility]) [place] [address] [facility] [place] [address] 11/25/2019 12:00:00 AM EDT eCW1 ([facility]) Unknown [address] [facility] [address] 11/21/2019 12:00:00 AM EDT eCW1 ([facility]) [place] [address] [facility] [place] [address] 11/20/2019 12:00:00 AM EDT eCW1 ([facility]) Unknown [address] [facility] [place] [address] 11/20/2019 12:00:00 AM EDT eCW1 ([facility]) Unknown [address] [facility] [address] 11/20/2019 12:00:00 AM EDT eCW1 ([facility]) Outpatient Attender: Sanju Shen/Wildwood/Quentin/Re indl 10/25/2019 09:10:00 AM EDT MEDENT ([facility] ) Outpatient Attender: Sanju Shen/Tiana/Quentin/Re indl 10/23/2019 08:40:00 AM EDT MEDENT ([facility], ) Immunizations Vaccine Date Status Description Data Source(s) COVID-19 VACCINE [facility] 05/14/2020 12:00:00 AM EDT completed [facility] Vaccine Series Complete: YESThis Data wa s Submitted to [facility]. Medications Medication Brand Name Start Date Product Form Dose Route Admi nistrative Instructions Pharmacy Instructions Status Indications Reaction Description Data Source(s) Albuterol 0.83 MG/ML Inhalant Solution Albuterol Sulfa te (2.5 MG/3ML) 0.083% Albuterol Sulfate (2.5 MG/3ML) 0.083% 11/09/2020 12:00:00 AM EDT 3.0 {ml_as_needed} active Albuterol Sulfate (2.5 MG/3ML) 0.083% eCW1 ([facility]) May Have - UNK 11/09/2020 12:00:00 AM EDT active May Have - eCW1 ([facility]) 2.5 mg /3 mL (0.083 %) 11/09/2020 [...] EDT active predniSONE 5 MG e 1 ([facility]) 5 mg 06/17/2020 12:00:00 AM EDT tablet [...] EDT active predniSONE 5 MG e 1 ([facility]) Prednisone 5 MG Oral Tablet PredniSONE 5 MG PredniSONE 5 MG 06/17/2020 12:00:00 AM EDT active PredniSONE 5 MG e CW1 ([facility]) Prednisone 5 MG Oral Tablet predniSONE 5 MG predniSONE 5 MG 06/17/2020 12:00:00 AM EDT active predniSONE 5 MG e 1 ([facility]) Folic Acid 1 MG Oral Tablet Folic Acid 1 MG 2020 12:00:00 AM EST 1.0 {tablet} active Folic Acid 1 MG eCW1 ([facility]) Folic Acid 1 MG Oral Tablet Folic Acid 1 MG 2020 12:00:00 AM EST 1.0 {tablet} active Folic Acid 1 MG eCW1 ([facility]) Methotrexate 2.5 MG Oral Tablet Methotrexate Sodium 2. 5 MG Methotrexate Sodium 2.5 MG 2020 12:00:00 AM EST active Methotrexate Sodium 2.5 MG eCW1 ([facility]) Methotrexate 2.5 MG Oral Tablet Methotrexate Sodium 2. 5 MG Methotrexate Sodium 2.5 MG 2020 12:00:00 AM EST active Methotrexate Sodium 2.5 MG eCW1 ([facility]) Methotrexate 2.5 MG Oral Tablet Methotrexate Sodium 2. 5 MG Methotrexate Sodium 2.5 MG 2020 12:00:00 AM EST active Methotrexate Sodium 2.5 MG eCW1 ([facility]) Folic Acid 1 MG Oral Tablet Folic Acid 1 MG 2020 12:00:00 AM EST 1.0 {tablet} active Folic Acid 1 MG eCW1 ([facility]) Methotrexate 2.5 MG Oral Tablet Methotrexate Sodium 2. 5 MG Methotrexate Sodium 2.5 MG 2020 12:00:00 AM EST active Methotrexate Sodium 2.5 MG eCW1 ([facility]) Folic Acid 1 MG Oral Tablet Folic Acid 1 MG 2020 12:00:00 AM EST 1.0 {tablet} active Folic Acid 1 MG eCW1 ([facility]) 1 mg 2020 12:00:00 AM EST tablet 30 TAKE ONE TABLET BY MOUTH EVERY DAY TAKE ONE TABLET BY MOUTH EVERY DAY SOLD: 03/26/2020 [facility] Folic Acid 1 MG Oral Tablet Folic Acid 1 MG 2020 12:00:00 AM EST 1.0 {tablet} active Folic Acid 1 MG eCW1 ([facility]) 2.5 mg 2020 12:00:00 AM EST tablet 16 TAKE 4 TABLETS BY MOUTH ONCE A WEEK TAKE 4 TABLETS BY MOUTH ONCE A WEEK SOLD: 03/26/2020 [facility] Folic Acid 1 MG Oral Tablet Folic Acid 1 MG 2020 12:00:00 AM EST 1.0 {tablet} active Folic Acid 1 MG eCW1 ([facility]) Methotrexate 2.5 MG Oral Tablet Methotrexate Sodium 2. 5 MG Methotrexate Sodium 2.5 MG 2020 12:00:00 AM EST active Methotrexate Sodium 2.5 MG eCW1 ([facility]) Methotrexate 2.5 MG Oral Tablet Methotrexate Sodium 2. 5 MG Methotrexate Sodium 2.5 MG 2020 12:00:00 AM EST active Methotrexate Sodium 2.5 MG eCW1 ([facility]) Folic Acid 1 MG Oral Tablet Folic Acid 1 MG 2020 12:00:00 AM EST 1.0 {tablet} active Folic Acid 1 MG eCW1 ([facility]) Methotrexate 2.5 MG Oral Tablet Methotrexate Sodium 2. 5 MG Methotrexate Sodium 2.5 MG 2020 12:00:00 AM EST active Methotrexate Sodium 2.5 MG eCW1 ([facility]) 10 mg 12/25/2019 12:00:00 AM EST tablet [...] EST a ctive Plaquenil 200 MG eCW1 ([facility]) 25 mg 11/25/2019 12:00:00 AM EDT capsule 90 TAKE ONE CAPSULE BY MOUTH EVERY 8 HOURS NEEDED TAKE ONE CAPSULE BY MOUTH EVERY 8 HOURS NEEDED SOLD : 11/26/2019 [facility] Hydroxyzine Pamoate 25 MG Oral Capsule HydrOXYzine Marci oate 25 MG HydrOXYzine Pamoate 25 MG 11/25/2019 12:00:00 AM EDT 1.0 {capsule_as_needed} active HydrOXYzine Pamoate 25 MG eCW1 ([facility]) Hydroxyzine Pamoate 25 MG Oral Capsule HydrOXYzine Marci oate 25 MG HydrOXYzine Pamoate 25 MG 11/25/2019 12:00:00 AM EDT 1.0 {capsule_as_needed} active HydrOXYzine Pamoate 25 MG eCW1 ([facility]) Hydroxyzine Pamoate 25 MG Oral Capsule hydrOXYzine Marci oate 25 MG hydrOXYzine Pamoate 25 MG 11/25/2019 12:00:00 AM EDT 1.0 {capsule_as_needed} active hydrOXYzine Pamoate 25 MG eCW1 ([facility]) levocetirizine dihydrochloride 5 MG Oral Tablet Levocetirizine Dihydrochloride 5 MG Levocetirizine Dihydrochloride 5 MG 11/25/2019 12:00:00 AM EDT 1.0 {tablet_in_the_evening} active Levoceti rizine Dihydrochloride 5 MG eCW1 ([facility]) Hydroxyzine Pamoate 25 MG Oral Capsule hydrOXYzine Marci oate 25 MG hydrOXYzine Pamoate 25 MG 11/25/2019 12:00:00 AM EDT 1.0 {capsule_as_needed} active hydrOXYzine Pamoate 25 MG eCW1 ([facility]) Hydroxyzine Pamoate 25 MG Oral Capsule HydrOXYzine Marci oate 25 MG HydrOXYzine Pamoate 25 MG 11/25/2019 12:00:00 AM EDT 1.0 {capsule_as_needed} active HydrOXYzine Pamoate 25 MG eCW1 ([facility]) Hydroxyzine Pamoate 25 MG Oral Capsule HydrOXYzine Marci oate 25 MG HydrOXYzine Pamoate 25 MG 11/25/2019 12:00:00 AM EDT 1.0 {capsule_as_needed} active HydrOXYzine Pamoate 25 MG eCW1 ([facility]) Hydroxyzine Pamoate 25 MG Oral Capsule HydrOXYzine Marci oate 25 MG HydrOXYzine Pamoate 25 MG 11/25/2019 12:00:00 AM EDT 1.0 {capsule_as_needed} active HydrOXYzine Pamoate 25 MG eCW1 ([facility]) Hydroxyzine Pamoate 25 MG Oral Capsule HydrOXYzine Marci oate 25 MG HydrOXYzine Pamoate 25 MG 11/25/2019 12:00:00 AM EDT 1.0 {capsule_as_needed} active HydrOXYzine Pamoate 25 MG eCW1 ([facility]) 5 mg 11/25/2019 12:00:00 AM EDT tablet 30 TAKE ONE TABLET BY MOUTH EVERY EVENING TAKE ONE TABLET BY MOUTH EVERY EVENING SOLD: 11/26/2019 [facility] levocetirizine dihydrochloride 5 MG Oral Tablet Levocetirizine Dihydrochloride 5 MG Levocetirizine Dihydrochloride 5 MG 11/25/2019 12:00:00 AM EDT 1.0 {tablet_in_the_evening} active Levoceti rizine Dihydrochloride 5 MG eCW1 ([facility]) Hydroxyzine Pamoate 25 MG Oral Capsule hydrOXYzine Marci oate 25 MG hydrOXYzine Pamoate 25 MG 11/25/2019 12:00:00 AM EDT 1.0 {capsule_as_needed} active hydrOXYzine Pamoate 25 MG eCW1 ([facility]) levocetirizine dihydrochloride 5 MG Oral Tablet Levocetirizine Dihydrochloride 5 MG Levocetirizine Dihydrochloride 5 MG 11/25/2019 12:00:00 AM EDT 1.0 {tablet_in_the_evening} suspended Levoce tirizine Dihydrochloride 5 MG eCW1 ([facility]) levocetirizine dihydrochloride 5 MG Oral Tablet Levocetirizine Dihydrochloride 5 MG Levocetirizine Dihydrochloride 5 MG 11/25/2019 12:00:00 AM EDT 1.0 {tablet_in_the_evening} suspended Levoce tirizine Dihydrochloride 5 MG eCW1 ([facility]) levocetirizine dihydrochloride 5 MG Oral Tablet Levocetirizine Dihydrochloride 5 MG Levocetirizine Dihydrochloride 5 MG 11/25/2019 12:00:00 AM EDT 1.0 {tablet_in_the_evening} active Levoceti rizine Dihydrochloride 5 MG eCW1 ([facility]) Hydroxyzine Pamoate 25 MG Oral Capsule HydrOXYzine Marci oate 25 MG HydrOXYzine Pamoate 25 MG 11/25/2019 12:00:00 AM EDT 1.0 {capsule_as_needed} suspended HydrOXYzine Pamoate 25 MG eCW1 ( [facility]) levocetirizine dihydrochloride 5 MG Oral Tablet Levocetirizine Dihydrochloride 5 MG Levocetirizine Dihydrochloride 5 MG 11/25/2019 12:00:00 AM EDT 1.0 {tablet_in_the_evening} suspended Levoce tirizine Dihydrochloride 5 MG eCW1 ([facility]) Hydroxyzine Pamoate 25 MG Oral Capsule HydrOXYzine Marci oate 25 MG HydrOXYzine Pamoate 25 MG 11/25/2019 12:00:00 AM EDT 1.0 {capsule_as_needed} active HydrOXYzine Pamoate 25 MG eCW1 ([facility]) levocetirizine dihydrochloride 5 MG Oral Tablet Levocetirizine Dihydrochloride 5 MG Levocetirizine Dihydrochloride 5 MG 11/25/2019 12:00:00 AM EDT 1.0 {tablet_in_the_evening} suspended Levoce tirizine Dihydrochloride 5 MG eCW1 ([facility]) levocetirizine dihydrochloride 5 MG Oral Tablet Levocetirizine Dihydrochloride 5 MG Levocetirizine Dihydrochloride 5 MG 11/25/2019 12:00:00 AM EDT 1.0 {tablet_in_the_evening} suspended Levoce tirizine Dihydrochloride 5 MG eCW1 ([facility]) levocetirizine dihydrochloride 5 MG Oral Tablet Levocetirizine Dihydrochloride 5 MG Levocetirizine Dihydrochloride 5 MG 11/25/2019 12:00:00 AM EDT 1.0 {tablet_in_the_evening} suspended Levoce tirizine Dihydrochloride 5 MG eCW1 ([facility]) Hydroxyzine Pamoate 25 MG Oral Capsule HydrOXYzine Marci oate 25 MG HydrOXYzine Pamoate 25 MG 11/25/2019 12:00:00 AM EDT 1.0 {capsule_as_needed} active HydrOXYzine Pamoate 25 MG eCW1 ([facility]) levocetirizine dihydrochloride 5 MG Oral Tablet Levocetirizine Dihydrochloride 5 MG Levocetirizine Dihydrochloride 5 MG 11/25/2019 12:00:00 AM EDT 1.0 {tablet_in_the_evening} active Levoceti rizine Dihydrochloride 5 MG eCW1 ([facility]) levocetirizine dihydrochloride 5 MG Oral Tablet Levocetirizine Dihydrochloride 5 MG Levocetirizine Dihydrochloride 5 MG 11/25/2019 12:00:00 AM EDT 1.0 {tablet_in_the_evening} suspended Levoce tirizine Dihydrochloride 5 MG eCW1 ([facility]) levocetirizine dihydrochloride 5 MG Oral Tablet Levocetirizine Dihydrochloride 5 MG Levocetirizine Dihydrochloride 5 MG 11/25/2019 12:00:00 AM EDT 1.0 {tablet_in_the_evening} suspended Levoce tirizine Dihydrochloride 5 MG eCW1 ([facility]) pantoprazole 40 MG Delayed Release Oral Tablet [...] 12:00:0 0 AM EDT ORAL active MEDENT ([facility] ) Cephalexin 500 MG Oral Capsule [...] type / Coverage type Policy ID Covered republican ID Covered republican's relationship to drummond Policy [place] Plan Information [facility] [id number] [facility] EMPIRE DENISE DIV [id number] WI2 [id number] [facility] [id number] [facility] EMPIRE DENISE DIV [id number] WI2 [id number] [facility] O [id number] S [id number] EMPIRE ([facility]) O [id number] S [id number] [facility] EMPIRE DENISE DIV [id number] WI2 [id number] [facility] Rector Plan Health Maintenance Organization (HMO) [id number] Family Dependent 8 [id number] [facility] EMPIRE PLAN [id number] [facility] Rector Plan Health Maintenance Organization (HMO) [id number] Family Dependent 8 [id number] EMPIRE BLUE CROSS BLUE SHIELD -O/P HM [id number] 01 [id number] EMPIRE BLUE CROSS BLUE SHIELD -O/P [id number] [facility] Rector Plan Health Maintenance Organization (HMO) [id number] Family Dependent [id number] [facility] Rector Plan Health Maintenance Organization (HMO) [id number] Family Dependent [id number] [facility] EMPIRE PLAN HM UNAVAILABLE 01 UN AVAILABLE ANSI-Commercial [id number] ANSI-Commercial [id number] ANSI-Commercial [id number] BCBS EMPIRE [facility] [id number] [facility] [id number] [facility] Rector Commercial [id number] Family Dependent [id number] [facility] Rector Commercial [id number] Family Dependent [id number] [facility] Rector Commercial [id number] Family Dependent [id number] [facility] Rector Commercial [id number] Family Depende nt BC/BS OF [place] P [id number] S [id number] Problems, Conditions, and Diagnoses Code Display Name Description Problem Type Effective Dates Data Source(s) J45.31 [id number] Mild persistent asthma with acute exacerb ation Problem 11/09/2020 12:00:00 AM EDT eCW1 ([facility]) Z88.9 [id number] Multiple allergies Problem 11/09/2020 12:00: 00 AM EDT eCW1 ([facility]) M06.09 [id number] Rheumatoid arthritis of multiple sites with negative rheumatoid factor Problem 04/15/2020 12:00:00 AM EST eCW1 ([facility]) M19.90 [id number] Inflammatory arthritis Problem 2020 12 :00:00 AM EST eCW1 ([facility]) D72.829 [id number] Leukocytosis, unspecified type Problem 11/20/2019 12:00:00 AM EDT eCW1 ([facility]) Surgeries/Procedures Procedure Description Date Indications Data Source(s) Suture Removal 12/03/2019 12:00:00 AM EDT eCW1 ([facility]) Results ID Date Data Source [id number] 11/16/2020 04:29:00 AM EDT [facility] Name Value Range Interpretation Code Description Data Elizabeth rce(s) Supporting Document(s) SARS-CoV-2 (COVID 19) NEGATIVE - SARS-CoV-2 (COVID19) [facility] This lab was ordered by [facility] a nd reported by [facility]. ID Date Data Source [id number] 11/07/2020 11:28:00 AM EDT [facility] Name Value Range Interpretation Code Description Data Elizabeth rce(s) Supporting Document(s) SARS COVID ANTIGEN NEGATIVE [facility] This lab was ordered by [facility] a nd reported by [facility]. ID Date Data Source C REACTIVE PROTEIN QUANTITATIV (At [facility]) 12/24/2019 12:00 :00 AM EST eCW1 ([facility]) Name Value Range Interpretation Code Description Data Elizabeth rce(s) Supporting Document(s) 2.33 0.00-0.30 C REACTIVE PROTEIN QUANTI TATIV eCW1 ([facility]) ID Date Data Source ERYTHROCYTE SEDIMENTATION RATE 12/24/2019 12:00:00 AM EST eC W1 ([facility]) Name Value Range Interpretation Code Description Data Elizabeth rce(s) Supporting Document(s) 20 0-15 ERYTHROCYTE SEDIMENTATION RATE eCW1 ([facility]) ID Date Data Source CBC with Differential 12/24/2019 12:00:00 AM EST eCW1 ([facility]) Name Value Range Interpretation Code Description Data Elizabeth rce(s) Supporting Document(s) 17.0 4.0-10.0 WHITE BLOOD COUNT eCW1 ([facility]) 5.04 4.30-6.10 RED BLOOD COUNT eCW1 ([facility]) 14.6 13.5-17.5 HEMOGLOBIN eCW1 ([facility]) 91.5 80.0-96.0 MEAN CORPUSCULAR VOLUME e CW1 ([facility]) 29.0 27.0-33.0 MEAN CORPUSCULAR HEMOGLOB IN eCW1 ([facility]) 46.1 42.0-52.0 HEMATOCRIT eCW1 ([facility]) 14.3 11.5-14.5 RED CELL DISTRIBUTION WID TH eCW1 ([facility]) 73.3 36.0-66.0 NEUTROPHILS % eCW1 ([facility]) 31.7 32.0-36.5 MEAN CORPUSCULAR HGB CONC eCW1 ([facility]) 412 150-450 PLATELET COUNT, AUTOMATED eCW1 ([facility]) 5.4 0.0-5.0 MONO % eCW1 ([facility]) 12.4 1.5-8.5 NEUTROPHILS # eCW1 ([facility]) 0.8 0.0-3.0 EOS % eCW1 ([facility]) 15.2 24.0-44.0 LYMPH % eCW1 ([facility]) 0.9 0.0-1.0 BASO % eCW1 ([facility]) 2.6 1.5-5.0 LYMPH # eCW1 ([facility]) 0.9 0.0-0.8 MONO # eCW1 ([facility]) 0.2 0.0-0.2 BASO # eCW1 ([facility]) 0.1 0.0-0.5 EOS # eCW1 ([facility]) ID Date Data Source COMPLEMENT C4 12/24/2019 12:00:00 AM EST eCW1 ([facility]) Name Value Range Interpretation Code Description Data Elizabeth rce(s) Supporting Document(s) 28 10-40 COMPLEMENT C4 eCW1 ([facility]) ID Date Data Source COMPLEMENT C3 12/24/2019 12:00:00 AM EST eCW1 ([facility]) Name Value Range Interpretation Code Description Data Elizabeth rce(s) Supporting Document(s) 108 90-180 COMPLEMENT C3 eCW1 ([facility]) ID Date Data Source TRYPTASE 11/26/2019 10:28:47 AM EDT eCW1 ([facility]) Name Value Range Interpretation Code Description Data Elizabeth rce(s) Supporting Document(s) 6.1 eCW1 ([facility]) ID Date Data Source ANTI-SJOGRENS A&B ANTIBODIES 11/26/2019 10:28:47 AM EDT eCW1 ([facility]) Name Value Range Interpretation Code Description Data Elizabeth rce(s) Supporting Document(s) <0.2 eCW1 ([facility]) <0.2 eCW1 ([facility]) ID Date Data Source ANTI-NEUTROPHIL CYTOPLASMIC AB 11/26/2019 10:28:47 AM EDT eC W1 ([facility]) Name Value Range Interpretation Code Description Data Elizabeth rce(s) Supporting Document(s) <1:20 eCW1 ([facility]) <1:20 eCW1 ([facility]) <1:20 eCW1 ([facility]) ID Date Data Source VLAD TITER & PATTERN 11/26/2019 10:28:47 AM EDT eCW1 ([facility]) Name Value Range Interpretation Code Description Data Elizabeth rce(s) Supporting Document(s) Positive eCW1 ([facility]) ID Date Data Source HEPATITIS B CORE ANTIBODY IGG 11/26/2019 10:28:47 AM EDT eCW 1 ([facility]) Name Value Range Interpretation Code Description Data Elizabeth rce(s) Supporting Document(s) Negative eCW1 ([facility]) ID Date Data Source CYCLIC CITRULLINATED PEPTIDE 11/26/2019 10:28:46 AM EDT eCW1 ([facility]) Name Value Range Interpretation Code Description Data Elizabeth rce(s) Supporting Document(s) 6 eCW1 ([facility]) ID Date Data Source UA URINALYSIS 11/21/2019 09:28:00 AM EDT eCW1 ([facility]) Name Value Range Interpretation Code Description Data Elizabeth rce(s) Supporting Document(s) eCW1 ([facility]) ID Date Data Source RHEUMATOID FACTOR QUANT 11/21/2019 09:27:59 AM EDT eCW1 ([facility]) Name Value Range Interpretation Code Description Data Elizabeth rce(s) Supporting Document(s) < 10.0 eCW1 ([facility]) ID Date Data Source HEPATITIS C ANTIBODY INDEX 11/21/2019 09:27:59 AM EDT eCW1 ( [facility]) Name Value Range Interpretation Code Description Data Elizabeth rce(s) Supporting Document(s) 0.0 eCW1 ([facility]) ID Date Data Source HEPATITIS B SURFACE ANTIGEN 11/21/2019 09:27:59 AM EDT eCW1 ([facility]) Name Value Range Interpretation Code Description Data Elizabeth rce(s) Supporting Document(s) NEGATIVE eCW1 ([facility]) ID Date Data Source Comprehensive Metabolic Profile (CMP) 11/21/2019 09:27:59 AM EDT eCW1 ([facility]) Name Value Range Interpretation Code Description Data Elizabeth rce(s) Supporting Document(s) 79 eCW1 ([facility]) 1.04 eCW1 ([facility]) > 60.0 eCW1 ([facility]) 14 eCW1 ([facility]) 141 eCW1 ([facility]) 107 eCW1 ([facility]) 30 eCW1 ([facility]) 9.2 eCW1 ([facility]) 3.9 eCW1 ([facility]) 46 eCW1 ([facility]) 0.3 eCW1 ([facility]) 15 eCW1 ([facility]) 50 eCW1 ([facility]) 6.8 eCW1 ([facility]) 3.5 eCW1 ([facility]) 1.1 eCW1 ([facility]) Procedure Social History Code Duration Value Status Description Data Source(s ) Smoking 06/17/2020 12:00:00 AM EDT Current Smoker completed Curre nt Smoker eCW1 ([facility]) Smoking 06/17/2020 12:00:00 AM EDT Current Smoker completed Curre nt Smoker eCW1 ([facility]) Smoking 06/17/2020 12:00:00 AM EDT Current Smoker completed Curre nt Smoker eCW1 ([facility]) Smoking 06/17/2020 12:00:00 AM EDT Current Smoker completed Curre nt Smoker eCW1 ([facility]) Smoking 04/15/2020 12:00:00 AM EST Current Smoker completed Curre nt Smoker eCW1 ([facility]) Smoking 04/15/2020 12:00:00 AM EST Current Smoker completed Curre nt Smoker eCW1 ([facility]) Smoking 04/15/2020 12:00:00 AM EST Current Smoker completed Curre nt Smoker eCW1 ([facility]) Smoking 12/24/2019 12:00:00 AM EST Current Smoker completed Curre nt Smoker eCW1 ([facility]) Smoking 11/25/2019 12:00:00 AM EDT Current Smoker completed Curre nt Smoker eCW1 ([facility]) Smoking 11/25/2019 12:00:00 AM EDT Current Smoker completed Curre nt Smoker eCW1 ([facility]) Smoking 11/25/2019 12:00:00 AM EDT Current Smoker completed Curre nt Smoker eCW1 ([facility]) Smoking 11/25/2019 12:00:00 AM EDT Current Smoker completed Curre nt Smoker eCW1 ([facility]) Smoking 11/20/2019 12:00:00 AM EDT Current Smoker completed Curre nt Smoker eCW1 ([facility]) Smoking 11/20/2019 12:00:00 AM EDT Current Smoker completed Curre nt Smoker eCW1 ([facility]) Smoking 11/20/2019 12:00:00 AM EDT Current Smoker completed Curre nt Smoker eCW1 ([facility]) Vital Signs ID Date Data Source UNK Name Value Range Interpretation Code Description Data Source(s) Body weight 212.2 [lb_av] 212.2 [lb_av] eCW1 ([facility]) Body weight 96.2 kg 96.2 kg eCW1 ([facility]) Body height 67 [in_i] 67 [in_i] eCW1 ([facility]) Body mass index (BMI) [Ratio] 33.23 kg/m2 33.23 kg/m2 eCW1 ([facility]) Heart rate 101 /min 101 /min eCW1 ([facility]) Respiratory rate 18 /min 18 /min eCW1 ([facility]) Body temperature 97.9 [degF] 97.9 [degF] eCW1 ( [facility]) Systolic blood pressure 140 mm[Hg] 140 mm[Hg] e CW1 ([facility]) Diastolic blood pressure 72 mm[Hg] 72 mm[Hg] eCW1 ([facility]) Body weight 221.4 [lb_av] 221.4 [lb_av] eCW1 ([facility]) Body weight 100.4 kg 100.4 kg eCW1 ([facility]) Body height 67 [in_i] 67 [in_i] eCW1 ([facility]) Body mass index (BMI) [Ratio] 34.67 kg/m2 34.67 kg/m2 eCW1 ([facility]) Heart rate 126 /min 126 /min eCW1 ([facility]) Respiratory rate 18 /min 18 /min eCW1 ([facility]) Body temperature 97.8 [degF] 97.8 [degF] eCW1 ( [facility]) Systolic blood pressure 122 mm[Hg] 122 mm[Hg] e CW1 ([facility]) Diastolic blood pressure 70 mm[Hg] 70 mm[Hg] eCW1 ([facility]) Body weight 225 [lb_av] 225 [lb_av] eCW1 ([facility]) Body weight 102 kg 102 kg eCW1 ([facility]) Body height 67 [in_i] 67 [in_i] eCW1 ([facility]) Body mass index (BMI) [Ratio] 35.24 kg/m2 35.24 kg/m2 eCW1 ([facility]) Heart rate 128 /min 128 /min eCW1 ([facility]) Respiratory rate 18 /min 18 /min eCW1 ([facility]) Body temperature 98.0 [degF] 98.0 [degF] eCW1 ( [facility]) Systolic blood pressure 128 mm[Hg] 128 mm[Hg] e CW1 ([facility]) Diastolic blood pressure 72 mm[Hg] 72 mm[Hg] eCW1 ([facility]) Body weight 220.0 [lb_av] 220.0 [lb_av] eCW1 ([facility]) Body height 67 [in_i] 67 [in_i] eCW1 ([facility]) Body mass index (BMI) [Ratio] 34.45 kg/m2 34.45 kg/m2 eCW1 ([facility]) Systolic blood pressure 130 mm[Hg] 130 mm[Hg] e CW1 ([facility]) Diastolic blood pressure 72 mm[Hg] 72 mm[Hg] eCW1 ([facility]) Body weight 220.2 [lb_av] 220.2 [lb_av] eCW1 ([facility]) Body weight 99.9 kg 99.9 kg eCW1 ([facility]) Body height 67 [in_i] 67 [in_i] eCW1 ([facility]) Body mass index (BMI) [Ratio] 34.48 kg/m2 34.48 kg/m2 eCW1 ([facility]) Heart rate 118 /min 118 /min eCW1 ([facility]) Respiratory rate 18 /min 18 /min eCW1 ([facility]) Body temperature 96.4 [degF] 96.4 [degF] eCW1 ( [facility]) Systolic blood pressure 122 mm[Hg] 122 mm[Hg] e CW1 ([facility]) Diastolic blood pressure 64 mm[Hg] 64 mm[Hg] eCW1 ([facility]) Patient Treatment Plan of Care Planned Activity Planned Date Details Description Data Source (s) June Have - 11/09/2020 12:00:00 AM EDT e CW1 ([facility]) Albuterol 0.83 MG/ML Inhalant Solution 11/09/2020 12:00:00 AM EDT eCW1 ([facility]) Prednisone 5 MG Oral Tablet 06/17/2020 12:00:00 AM EDT eCW1 ([facility]) Prednisone 5 MG Oral Tablet 06/17/2020 12:00:00 AM EDT eCW1 ([facility]) Prednisone 5 MG Oral Tablet 06/17/2020 12:00:00 AM EDT eCW1 ([facility]) Prednisone 5 MG Oral Tablet 06/17/2020 12:00:00 AM EDT eCW1 ([facility]) Methotrexate 2.5 MG Oral Tablet 2020 12:00:00 AM EST eCW1 ([facility]) Methotrexate 2.5 MG Oral Tablet 2020 12:00:00 AM EST eCW1 ([facility]) Methotrexate 2.5 MG Oral Tablet 2020 12:00:00 AM EST eCW1 ([facility]) Hydroxychloroquine Sulfate 200 MG Oral Tablet [[place]] 12/24/2019 12:00:00 AM EST eCW1 ([facility]) levocetirizine dihydrochloride 5 MG Oral Tablet 11/25/2019 12:00:00 AM EDT eCW1 ([facility]) Hydroxyzine Pamoate 25 MG Oral Capsule 11/25/2019 12:00:00 AM EDT eCW1 ([facility]) levocetirizine dihydrochloride 5 MG Oral Tablet 11/25/2019 12:00:00 AM EDT eCW1 ([facility]) Hydroxyzine Pamoate 25 MG Oral Capsule 11/25/2019 12:00:00 AM EDT eCW1 ([facility]) levocetirizine dihydrochloride 5 MG Oral Tablet 11/25/2019 12:00:00 AM EDT eCW1 ([facility]) Hydroxyzine Pamoate 25 MG Oral Capsule 11/25/2019 12:00:00 AM EDT eCW1 ([facility]) levocetirizine dihydrochloride 5 MG Oral Tablet 11/25/2019 12:00:00 AM EDT eCW1 ([facility]) Hydroxyzine Pamoate 25 MG Oral Capsule 11/25/2019 12:00:00 AM EDT eCW1 ([facility])
--- NOTE | 2020-12-01 00:28 | REPVR ---
PROCEDURE INFORMATION: Exam: XR Chest Exam date and time: 11/30/2020 11:20 PM Age: 45 years old Clinical indication: Cough and shortness of breath; Additional info: Chest pain TECHNIQUE: Imaging protocol: XR of the chest. Views: 1 view. COMPARISON: 1. CR PORTABLE CHEST X-RAY 11/16/2020 5:[address] ANGIO CHEST 11/16/2020 8:12:33 AM FINDINGS: Lungs: There is an airspace opacity in the left upper lobe. Bilateral ground-glass opacities can be seen in the lungs in the CTA chest on 11/16/2020. Pleural spaces: Unremarkable. No pleural effusion. No pneumothorax. Heart/Mediastinum: Unremarkable. No cardiomegaly. Bones/joints: There are endplate spurs in the thoracic spine. IMPRESSION: Airspace opacity in the left upper lobe, which may represent pneumonia. Electronically signed by: Rigoberto Fair On 12/01/2020 00:27:33 AM
[2020-12-01] MEDS ORDERED: methylPREDNISolone 125MG 2ML VIAL IV ONE (00:40)
[2020-12-01] MEDS ORDERED: IPRATROPIUM 0.5MG/ALBUTEROL 2.5MG INH SOL UD 3ML (DUONEB) NEB ONE (00:40)
[2020-12-01 02:00] LABS: CK-MB VALUE MASS 4.8 NG/ML (<3.6); CPK CREATINE PHOSPHOKINASE 269 U/L (39-308); MB/CK RELATIVE INDEX 1.78 (< OR =4); NT-PRO BNP 11 PG/ML (<125); TROPONIN I < 0.02 NG/ML (< 0.10)
[2020-12-01] MEDS ORDERED: DOXY-350 PO (02:54)
[2020-12-01] MEDS ORDERED: COMBAER6 INH (02:54)
[2020-12-01 03:01] VITALS: BP 120/70
[2020-12-01] MEDS ORDERED: PRED20TA PO (03:02)
[2020-12-01] MEDS ORDERED: DOXYCYCLINE HYCLATE 100MG TABLET PO ONE (03:05)
--- NOTE | 2020-12-01 06:25 | ECGEPIP ---
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
--- NOTE | 2020-12-01 15:56 | ECGEPIP ---
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
== END 2020-12-01 03:18 | disposition home or self-care (01) ==
LOC: M ED 22:10
DX: J18.9 Pneumonia, unspecified organism (principal); J45.909 Unspecified asthma, uncomplicated; K21.9 Gastro-esophageal reflux disease without esophagitis; F17.200 Nicotine dependence, unspecified, uncomplicated; Z88.0 Allergy status to penicillin; Z79.899 Other long term (current) drug therapy
CPT/HCPCS: 71045; 80048; 80076; 82550; 82553; 83690; 83880; 84443; 84484; 85025; 85610; 85730; 87798; 93005; 93041; 94640; 94760; 96374; 99285; J2930

== ENCOUNTER → 2020-12-17 | Outpatient (CLI) | payer BC, OTHER ==
[~2020-12-17] MED LIST changes: +COMBAER6 INH; +DOXY-350 PO
--- NOTE | 2020-12-17 13:25 | REP ---
INDICATION: PNEUMONIA. COMPARISON: 11/30/2020 a portable exam TECHNIQUE: PA and lateral FINDINGS: The superior mediastinal structures are midline. The cardiac silhouette is unremarkable in size, shape, and position. The diaphragmatic surfaces of the lungs are regular, and the costophrenic angles are clear. The pulmonary stahl are clear. The imaged osseous structures are intact. IMPRESSION: There is no acute cardiopulmonary disease. There is a round metallic radiodensity in the left medial chest wall soft tissues. This is unchanged since 08/28/2019 <Electronically signed by Vito Kelley > 12/17/20 1321
== END ==
LOC: M PLAIMG 11:46
PROVIDERS: ATTEND Physician Assistant Medical
DX: J18.9 Pneumonia, unspecified organism (principal)

== ENCOUNTER → 2021-04-22 | Outpatient (CLI) | payer BC, OTHER ==
[~2021-04-22] MED LIST changes: +FAMO40TA3 PO; -MONT10TA10 PO; +MONT10TA97 PO
== END ==
LOC: M RAD 08:21
PROVIDERS: ATTEND Physician Assistant
DX: R91.8 Other nonspecific abnormal finding of lung field (principal)

== ENCOUNTER → 2021-04-23 | Outpatient (CLI) | payer BC, OTHER ==
[2021-04-23 13:39] LABS: BASO # 0.1 10^3/uL (0.0-0.2); BASO % 0.7 % (0.0-1.0); EOS # 0.5 10^3/uL (0.0-0.5); EOS % 3.1 % (0.0-3.0); HEMATOCRIT 42.9 % (42.0-52.0); HEMOGLOBIN 13.7 g/dl (13.5-17.5); LYMPH # 3.4 10^3/uL (1.5-5.0); LYMPH % 22.9 % (24.0-44.0); MEAN CORPUSCULAR HEMOGLOBIN 28.4 pg (27.0-33.0); MEAN CORPUSCULAR HGB CONC 31.9 g/dl (32.0-36.5); MEAN CORPUSCULAR VOLUME 88.8 fl (80.0-96.0); MONO % 11.3 % (2.0-8.0); NEUTROPHILS % 61.3 % (36.0-66.0); PLATELET COUNT, AUTOMATED 405 10^3/uL (150-450); RED BLOOD COUNT 4.83 10^6/uL (4.30-6.10); WHITE BLOOD COUNT 14.7 10^3/uL (4.0-10.0)
[2021-04-23 14:11] LABS: ERYTHROCYTE SEDIMENTATION RATE 23 mm/hr (0-15)
[2021-04-23 14:12] LABS: ALBUMIN 3.7 GM/DL (3.2-5.2); ALT/SGPT 30 U/L (12-78); BILIRUBIN,TOTAL 0.2 MG/DL (0.2-1.0); BLOOD UREA NITROGEN 17 MG/DL (7-18); C REACTIVE PROTEIN QUANTITATIV 0.72 MG/DL (0.00-0.30); CALCIUM LEVEL 9.4 MG/DL (8.5-10.1); CARBON DIOXIDE LEVEL 31 MEQ/L (21-32); CHLORIDE LEVEL 111 MEQ/L (98-107); CHOLESTEROL LEVEL 190 MG/DL (<200); CHOLESTEROL RISK RATIO 4.042 (<5); CREATININE FOR GFR 0.89 MG/DL (0.70-1.30); GLOMERULAR FILTRATION RATE > 60.0 (>60); GLUCOSE, FASTING 110 MG/DL (70-100); HDL CHOLESTEROL 47 MG/DL (>40); LDL CHOLESTEROL 129 MG/DL (<100); NON-HDL-C 143 MG/DL; POTASSIUM SERUM 4.6 MEQ/L (3.5-5.1); SODIUM LEVEL 142 MEQ/L (136-145); TOTAL PROTEIN 6.7 GM/DL (6.4-8.2); TRIGLYCERIDES LEVEL 71 MG/DL (<150)
[2021-04-23 14:13] LABS: MONO # 1.7 10^3/uL (0.0-0.8)
== END ==
LOC: M PLALAB 11:01
PROVIDERS: ATTEND Physician Assistant Medical
DX: L50.8 Other urticaria (principal); Z13.220 Encounter for screening for lipoid disorders; Z12.5 Encounter for screening for malignant neoplasm of prostate
CPT/HCPCS: 36415; 80053; 80061; 85025; 85652; 86140; 86352; G0103

== ENCOUNTER → 2021-05-18 | Outpatient (CLI) | payer BC, OTHER | LOC: M PLAIMG 08:43 | PROVIDERS: ATTEND Physician Assistant | DX: M79.652 Pain in left thigh (principal) ==

== ENCOUNTER → 2021-10-05 | Outpatient (REF) | payer OTHER ==
[~2021-10-05] MED LIST changes: +ALBU2.5V10 NEB; -ALBU83IN NEB
[2021-10-05 11:48] LABS: BASO # 0.2 10^3/uL (0.0-0.2); BASO % 0.8 % (0.0-1.0); EOS # 0.5 10^3/uL (0.0-0.5); EOS % 2.3 % (0.0-3.0); HEMATOCRIT 47.3 % (42.0-52.0); HEMOGLOBIN 15.4 g/dl (13.5-17.5); LYMPH # 2.9 10^3/uL (1.5-5.0); LYMPH % 13.3 % (24.0-44.0); MEAN CORPUSCULAR HEMOGLOBIN 28.3 pg (27.0-33.0); MEAN CORPUSCULAR HGB CONC 32.6 g/dl (32.0-36.5); MEAN CORPUSCULAR VOLUME 86.9 fl (80.0-96.0); MONO % 9.3 % (2.0-8.0); NEUTROPHILS # 15.7 10^3/uL (1.5-8.5); PLATELET COUNT, AUTOMATED 391 10^3/uL (150-450); RED BLOOD COUNT 5.44 10^6/uL (4.30-6.10); WHITE BLOOD COUNT 21.5 10^3/uL (4.0-10.0)
[2021-10-05 12:12] LABS: ALBUMIN 3.3 GM/DL (3.2-5.2); ALT/SGPT 24 U/L (12-78); BILIRUBIN,TOTAL 0.4 MG/DL (0.2-1.0); BLOOD UREA NITROGEN 12 MG/DL (7-18); CARBON DIOXIDE LEVEL 26 MEQ/L (21-32); CHLORIDE LEVEL 110 MEQ/L (98-107); CREATININE FOR GFR 0.87 MG/DL (0.70-1.30); GLOMERULAR FILTRATION RATE > 60.0 (>60); GLUCOSE, FASTING 103 MG/DL (70-100); POTASSIUM SERUM 4.3 MEQ/L (3.5-5.1); SODIUM LEVEL 140 MEQ/L (136-145); TOTAL PROTEIN 7.1 GM/DL (6.4-8.2)
[2021-10-05 12:13] LABS: C REACTIVE PROTEIN QUANTITATIV 0.44 MG/DL (0.00-0.30)
[2021-10-05 12:25] LABS: ERYTHROCYTE SEDIMENTATION RATE 12 mm/hr (0-15)
== END ==
LOC: M SFHCRHEU 09:48
PROVIDERS: ATTEND Internal Medicine Rheumatology
DX: M06.09 Rheumatoid arthritis without rheumatoid factor, multiple sites (principal); L50.8 Other urticaria; D72.829 Elevated white blood cell count, unspecified; R76.8 Other specified abnormal immunological findings in serum; Z72.0 Tobacco use

== ENCOUNTER → 2021-10-08 | Outpatient (CLI) | payer OTHER ==
[2021-10-08 13:54] LABS: BASO # 0.2 10^3/uL (0.0-0.2); BASO % 1.2 % (0.0-1.0); EOS # 0.5 10^3/uL (0.0-0.5); EOS % 3.4 % (0.0-3.0); HEMATOCRIT 47.4 % (42.0-52.0); HEMOGLOBIN 15.1 g/dl (13.5-17.5); LYMPH # 3.1 10^3/uL (1.5-5.0); LYMPH % 22.8 % (24.0-44.0); MEAN CORPUSCULAR HGB CONC 31.9 g/dl (32.0-36.5); MEAN CORPUSCULAR VOLUME 87.9 fl (80.0-96.0); MONO # 1.5 10^3/uL (0.0-0.8); MONO % 10.8 % (2.0-8.0); NEUTROPHILS # 8.2 10^3/uL (1.5-8.5); NEUTROPHILS % 60.1 % (36.0-66.0); PLATELET COUNT, AUTOMATED 425 10^3/uL (150-450); RED BLOOD COUNT 5.39 10^6/uL (4.30-6.10); WHITE BLOOD COUNT 13.6 10^3/uL (4.0-10.0)
[2021-10-08 14:35] LABS: ERYTHROCYTE SEDIMENTATION RATE 9 mm/hr (0-15)
== END ==
LOC: M PLALAB 10:15
PROVIDERS: ATTEND Physician Assistant Medical
DX: D72.829 Elevated white blood cell count, unspecified (principal)

== ENCOUNTER 2021-11-28 19:09 | Emergency (ER) | payer BC, OTHER ==
[~2021-11-28] VITALS: Ht 172.7 cm; Wt 95.5 kg
[2021-11-28 19:09] VITALS: BP 133/88
== END 2021-11-28 22:25 | disposition left against medical advice (07) ==
LOC: M ED 19:09
DX: Z53.21 Procedure and treatment not carried out due to patient leaving prior to being seen by health care provider (principal)

== ENCOUNTER → 2022-04-14 | Outpatient (CLI) | payer BC, OTHER ==
[~2022-04-14] MED LIST changes: -DOXY-350 PO; +DOXY-444 PO
[2022-04-14 18:05] LABS: BASO # 0.1 10^3/uL (0.0-0.2); BASO % 0.8 % (0.0-1.0); EOS # 0.2 10^3/uL (0.0-0.5); EOS % 1.5 % (0.0-3.0); HEMATOCRIT 47.1 % (42.0-52.0); HEMOGLOBIN 14.9 g/dl (13.5-17.5); LYMPH # 3.5 10^3/uL (1.5-5.0); LYMPH % 22.6 % (24.0-44.0); MEAN CORPUSCULAR HEMOGLOBIN 27.4 pg (27.0-33.0); MEAN CORPUSCULAR HGB CONC 31.6 g/dl (32.0-36.5); MEAN CORPUSCULAR VOLUME 86.7 fl (80.0-96.0); MONO # 1.4 10^3/uL (0.0-0.8); NEUTROPHILS # 10.3 10^3/uL (1.5-8.5); NEUTROPHILS % 65.2 % (36.0-66.0); PLATELET COUNT, AUTOMATED 442 10^3/uL (150-450); RED BLOOD COUNT 5.43 10^6/uL (4.30-6.10); WHITE BLOOD COUNT 15.7 10^3/uL (4.0-10.0)
[2022-04-14 18:35] LABS: ALBUMIN 3.7 G/DL (3.2-5.2); ALKALINE PHOSPHATASE 57 U/L (46-116); ALT/SGPT 21 U/L (7.0-40); AST/SGOT 16 U/L (<34); BILIRUBIN,TOTAL 0.4 MG/DL (0.3-1.2); BLOOD UREA NITROGEN 13 MG/DL (9-23); CARBON DIOXIDE LEVEL 29 MMOL/L (20-31); CHLORIDE LEVEL 104 MMOL/L (98-107); CHOLESTEROL LEVEL 190 MG/DL (<200); CHOLESTEROL RISK RATIO 5.17 (<5); CREATININE FOR GFR 0.82 MG/DL (0.70-1.30); GLOMERULAR FILTRATION RATE > 60.0 (>60); GLUCOSE, FASTING 79 MG/DL (60-100); HDL CHOLESTEROL 36.7 MG/DL (>40); LDL CHOLESTEROL 129.9 MG/DL (<100); NON-HDL-C 153.3 MG/DL; POTASSIUM SERUM 4.2 MMOL/L (3.5-5.1); SODIUM LEVEL 139 MMOL/L (136-145); TRIGLYCERIDES LEVEL 117 MG/DL (<150)
== END ==
LOC: M PLALAB 15:25
PROVIDERS: ATTEND Physician Assistant Medical
DX: K21.9 Gastro-esophageal reflux disease without esophagitis (principal); Z13.220 Encounter for screening for lipoid disorders; D72.829 Elevated white blood cell count, unspecified; Z12.5 Encounter for screening for malignant neoplasm of prostate
CPT/HCPCS: 36415; 80053; 80061; 85025; G0103

== ENCOUNTER → 2022-09-26 | Outpatient (CLI) | payer BC, OTHER | LOC: M PLALAB 10:17 | PROVIDERS: ATTEND Physician Assistant Medical | DX: M54.31 Sciatica, right side (principal) ==

== ENCOUNTER → 2022-09-28 | Outpatient (CLI) | payer BC, OTHER | LOC: M PLALAB 14:45 | PROVIDERS: ATTEND Physician Assistant Medical | DX: M25.50 Pain in unspecified joint (principal) ==

== ENCOUNTER → 2022-12-14 | Outpatient (REF) | payer BC, OTHER | LOC: M LAB REF 18:01 | PROVIDERS: ATTEND Surgery | DX: L72.0 Epidermal cyst (principal) ==

== ENCOUNTER → 2023-06-26 | Outpatient (CLI) | payer BC, OTHER ==
[~2023-06-26] MED LIST changes: +DOXY-440 PO; -DOXY-444 PO
[2023-06-26 12:52] LABS: INR 1.03; PARTIAL THROMBOPLASTIN TIME 33.3 SECONDS (24.8-34.2); PROTHROMBIN TIME 13.2 SECONDS (12.5-14.5)
[2023-06-26 13:14] LABS: BASO # 0.1 10^3/uL (0.0-0.2); BASO % 0.8 % (0.0-1.0); EOS # 0.2 10^3/uL (0.0-0.5); EOS % 2.1 % (0.0-3.0); HEMATOCRIT 46.9 % (42.0-52.0); HEMOGLOBIN 15.3 g/dl (13.5-17.5); LYMPH # 2.8 10^3/uL (1.5-5.0); LYMPH % 25.7 % (24.0-44.0); MEAN CORPUSCULAR HEMOGLOBIN 28.2 pg (27.0-33.0); MEAN CORPUSCULAR HGB CONC 32.6 g/dl (32.0-36.5); MEAN CORPUSCULAR VOLUME 86.5 fl (80.0-96.0); MONO # 1.1 10^3/uL (0.0-0.8); MONO % 10.3 % (2.0-8.0); NEUTROPHILS # 6.5 10^3/uL (1.5-8.5); NEUTROPHILS % 60.3 % (36.0-66.0); PLATELET COUNT, AUTOMATED 414 10^3/uL (150-450); RED BLOOD COUNT 5.42 10^6/uL (4.30-6.10); WHITE BLOOD COUNT 10.7 10^3/uL (4.0-10.0)
[2023-06-26 13:18] LABS: PSA SCREENING 1.58 NG/ML (< 4.00)
[2023-06-26 13:19] LABS: ALBUMIN 3.5 G/DL (3.2-5.2); ALKALINE PHOSPHATASE 57 U/L (46-116); ALT/SGPT 19 U/L (7.0-40); AST/SGOT 14 U/L (<34); BILIRUBIN,TOTAL 0.4 MG/DL (0.3-1.2); BLOOD UREA NITROGEN 15 MG/DL (9-23); CARBON DIOXIDE LEVEL 28 MMOL/L (20-31); CHLORIDE LEVEL 111 MMOL/L (98-107); CHOLESTEROL LEVEL 191 MG/DL (<200); CHOLESTEROL RISK RATIO 4.84 (<5); CREATININE FOR GFR 0.92 MG/DL (0.70-1.30); GLOMERULAR FILTRATION RATE > 60.0 (>56); GLUCOSE, FASTING 99 MG/DL (60-100); HDL CHOLESTEROL 39.4 MG/DL (>40); LDL CHOLESTEROL 133.8 MG/DL (<100); NON-HDL-C 151.6 MG/DL; POTASSIUM SERUM 4.9 MMOL/L (3.5-5.1); SODIUM LEVEL 140 MMOL/L (136-145); TOTAL PROTEIN 6.7 G/DL (5.7-8.2); TRIGLYCERIDES LEVEL 89 MG/DL (<150)
== END ==
LOC: M PLALAB 10:44
PROVIDERS: ATTEND Physician Assistant Medical
DX: Z13.220 Encounter for screening for lipoid disorders (principal)

== ENCOUNTER → 2023-08-16 | Outpatient (REF) | payer BC ==
[~2023-08-16] MED LIST changes: +ALBU8.5H; +ARNU1INH; +BACL10TA2 PO; +BREO1INH; +MELO7.5T35 PO
[2023-08-16 15:48] LABS: APPEARANCE, URINE TURBID (CLEAR); BACTERIA, URINE AUTO NEGATIVE (NEGATIVE); BILIRUBIN, URINE AUTO NEGATIVE (NEGATIVE); BLOOD, URINE BLOOD NEGATIVE (NEGATIVE); COLOR, URINE AMBER (YELLOW); GLUCOSE, URINE (UA) AUTO NEGATIVE (NEGATIVE); KETONE, URINE AUTO TRACE mg/dL (NEGATIVE); LEUKOCYTE ESTERASE, URINE AUTO TRACE (NEGATIVE); MUCUS, URINE SMALL (NEGATIVE); NITRITE, URINE AUTO NEGATIVE (NEGATIVE); PROTEIN, URINE AUTO NEGATIVE (NEGATIVE); RBC, URINE AUTO 1 /HPF (0-3); SPECIFIC GRAVITY URINE AUTO 1.024 (1.002-1.035); SQUAMOUS EPITHELIAL CELL UR AU 0 /HPF (0-6); WBC, URINE AUTO 8 /HPF (0-3)
== END ==
LOC: M SFHCPLAZ 14:46
PROVIDERS: ATTEND Physician Assistant Medical
DX: R30.0 Dysuria (principal)

== ENCOUNTER 2023-10-31 05:17 | Emergency (ER) | payer BC ==
[~2023-10-31] VITALS: Ht 172.7 cm; Wt 87.6 kg
[2023-10-31 05:21] VITALS: BP 141/79; TEMP 98.4; O2SAT 97
== END 2023-10-31 07:05 | disposition left against medical advice (07) ==
LOC: M ED 05:17
DX: Z53.21 Procedure and treatment not carried out due to patient leaving prior to being seen by health care provider (principal)